=== PATIENT | female | born 1955 | race Caucasian/White ===

== ENCOUNTER 2018-02-14 08:00 | Outpatient (CLI) | payer OTHER ==
[2018-02-14 12:45] LABS: BASOPHILS # (AUTO) 0.1 10^3/uL (0.0-0.1); BASOPHILS % (AUTO) 1.1 %; EOSINOPHILS # (AUTO) 0.3 10^3/uL (0.0-0.7); EOSINOPHILS % (AUTO) 3.6 %; HGB - HEMOGLOBIN 16.6 g/dL (12.0-16.0); LYMPHOCYTES # (AUTO) 1.5 10^3/uL (1.5-3.5); LYMPHOCYTES % (AUTO) 18.8 %; MEAN CORPUSCULAR HEMOGLOBIN 32.7 pg (27.0-31.0); MEAN CORPUSCULAR HGB CONC 34.2 g/dL (32.0-36.0); MEAN CORPUSCULAR VOLUME 95.6 fL (81.0-99.0); MEAN PLATELET VOLUME 10.3 fL (7.9-10.8); MONOCYTES # (AUTO) 0.5 10^3/uL (0.0-1.0); MONOCYTES % (AUTO) 6.1 %; NEUTROPHILS # (AUTO) 5.6 10^3/uL (1.5-6.6); NEUTROPHILS % (AUTO) 70.4 %; PLT - PLATELET COUNT 204 10^3/uL (130-450); RED CELL DISTRIBUTION WIDTH 14.3 % (12.0-15.0); WHITE BLOOD COUNT 7.9 x10^3/uL (4.8-10.8)
[2018-02-14 13:17] LABS: ALBUMIN 4.5 g/dL (3.2-5.5); ALBUMIN/GLOBULIN RATIO 1.4 (1.0-2.2); ALKALINE PHOSPHATASE 56 IU/L (42-121); ALT ALANINE AMINOTRANSFERASE 13 IU/L (10-60); AST ASPARTATE AMINOTRANSFERASE 20 IU/L (10-42); BILIRUBIN,TOTAL 0.5 mg/dL (0.2-1.0); BUN - BLOOD UREA NITROGEN 16 mg/dL (6-20); CALCIUM 9.4 mg/dL (8.5-10.3); CARBON DIOXIDE - CO2 26 mmol/L (21-32); CHLORIDE 104 mmol/L (101-111); CHOL/HDL RATIO 3.2 (<4.4); CHOLESTEROL 237 mg/dL; CREATININE 0.8 mg/dL (0.4-1.0); GFR - MDRD 73 (>89); GLUCOSE 91 mg/dL (70-100); HDL CHOLESTEROL 74 mg/dL; LDL CHOLESTEROL,CALCULATED 149 mg/dL; SODIUM 138 mmol/L (135-145); TOTAL PROTEIN 7.7 g/dL (6.7-8.2); VLDL CHOLESTEROL 14 mg/dL
[2018-02-14 13:26] LABS: FOLATE 22.78 ng/mL (5.90 - >24.8); HB2 TOTAL 19.2 g/dL; HEMOGLOBIN A1C 0.74 g/dL; HEMOGLOBIN A1C % 5.7 % (4.6-6.2)
== END 2018-02-14 08:01 | disposition home or self-care (01) ==
LOC: LAB.WCP 08:00
PROVIDERS: ATTEND Physician Assistant
DX: Z00.00 Encounter for general adult medical examination without abnormal findings (principal); F10.10 Alcohol abuse, uncomplicated
CPT/HCPCS: 36415; 80053; 80061; 82607; 82746; 83036; 83721; 84425; 84443; 85025

== ENCOUNTER 2018-03-13 14:57 | Outpatient (CLI) | payer OTHER ==
--- NOTE | 2018-03-14 07:10 | MRI Report ---
EXAM: MRI BRAIN WITHOUT CONTRAST EXAM DATE: 03/13/2018 03:55 PM. CLINICAL HISTORY: Dementia associated with alcoholism. COMPARISON: 07/15/2015. TECHNIQUE: Multiplanar, multisequence T1-weighted and fluid-sensitive MR sequences of the brain were performed. Sequences optimized for routine evaluation. Other: None. IV Contrast: None. FINDINGS: Brain Volume: Mild diffuse potentially progressive cerebral volume loss. Parenchyma/Dura: No restricted diffusion to suggest acute or recent ischemic infarct. No cerebral hem orrhage, mass effect, midline shift or abnormal subdural fluid collection. No focal brain swelling or edema. Minimal white matter T2 hyperintense signal changes, possibly from aging and minimal microang iopathy. Ventricles/Cisterns: No hydrocephalus. Orbits: Symmetric and unremarkable. Sella Turc[place]: The pituitary gland, cavernous sinuses, suprasellar cistern and optic chiasm are unrem arkable. Vasculature: Normal signal flow void is seen in the major arterial structures at the skull base. Sinuses: No acute appearing sinus disease. Bones: No focal pathologic appearing marrow signal changes in the skull or clivus. Other: None. IMPRESSION: 1. Mild generalized cerebral volume loss, possibly progressive. 2. Minimal nonspecific white matter T2 hyperintense signal changes. 3. No evidence for acute infarct or hemorrhage. [facility] Referring Provider Line: [phone] SITE ID: [id number]
== END 2018-03-13 14:58 | disposition home or self-care (01) ==
LOC: DI 14:57
PROVIDERS: ATTEND Physician Assistant
DX: F10.97 Alcohol use, unspecified with alcohol-induced persisting dementia (principal)
CPT/HCPCS: 70551

== ENCOUNTER 2018-04-10 09:00 | Outpatient (CLI) | payer OTHER ==
[2018-04-10 19:49] LABS: H. PYLORIS ANTIGEN STL NEGATIVE (Negative)
== END 2018-04-10 09:01 | disposition home or self-care (01) ==
LOC: LAB.R 09:00
PROVIDERS: ATTEND Physician Assistant
DX: R19.7 Diarrhea, unspecified (principal)
CPT/HCPCS: 81599; 83630; 87045; 87046; 87177; 87209; 87329; 87338; 87493

== ENCOUNTER 2018-05-04 10:27 | Day surgery (SDC) | payer OTHER ==
[2018-05-04] MEDS ORDERED: LACTATED RINGERS 1,000 ML IV ONE ×2 (10:49→13:06)
[2018-05-04 11:41] LABS: INR 1.1 (0.8-1.2); PT - PROTHROMBIN TIME 12.3 secs (9.9-12.6)
[2018-05-04] MEDS ORDERED: LIDOCAINE-MPF 2% 5 ML VIAL IM ONE (12:33)
[2018-05-04] MEDS ORDERED: MIDAZOLAM 2 MG/2 ML VIAL IVP ONE (12:33)
[2018-05-04] MEDS ORDERED: PROPOFOL 200 MG/20 ML VIAL IVP ONE (12:33)
[2018-05-04] MEDS ORDERED: fentaNYL 100 MCG/2 ML VIAL IVP ONE (12:33)
[2018-05-04 13:49] VITALS: BP 114/62
== END 2018-05-04 10:28 | disposition home or self-care (01) ==
LOC: SDS 10:27
PROVIDERS: ATTEND Internal Medicine Gastroenterology
PROC: 0DBM8ZX Excision of Descending Colon, Via Natural or Artificial Opening Endoscopic, Diagnostic (ICD-10-PCS; 2018-05-04)
PROC: 0DBK8ZX Excision of Ascending Colon, Via Natural or Artificial Opening Endoscopic, Diagnostic (ICD-10-PCS; principal; 2018-05-04 11:30)
DX: K52.831 Collagenous colitis (principal); F17.210 Nicotine dependence, cigarettes, uncomplicated; F10.27 Alcohol dependence with alcohol-induced persisting dementia; K57.30 Diverticulosis of large intestine without perforation or abscess without bleeding; M54.5 Low back pain
CPT/HCPCS: 45380; 85610; J7120; 88305

== ENCOUNTER 2019-08-01 10:56 | Outpatient (CLI) | payer OTHER ==
--- NOTE | 2019-08-02 10:00 | Mammography Report ---
Reason: SCREENING MAMMO Procedure Date: 08/01/2019 Accession Number: [id number] / [id number] Procedure: [facility] - Screening Mammo Dig Bilat CPT Code: FULL RESULT: EXAM: Screening Mammo Dig Bilat DATE: 08/01/2019 11:40 AM CLINICAL HISTORY: Screening encounter. History of nulliparity. TECHNIQUE: (B) - Bilateral CC and MLO views were obtained. COMPARISON: 09/20/2014 through 07/16/2010. PARENCHYMAL PATTERN: (D) - The breast(s) demonstrate(s) heterogeneously dense fibroglandular parenchyma. FINDINGS: There are no suspicious masses, calcifications, or areas of distortion. IMPRESSION: Negative examination. BI-RADS category 1. RECOMMENDATION: (ANNUAL) - Recommend routine annual screening mammography. BI-RADS CATEGORY: (1) - Negative. STANDARD QUALIFYING STATEMENTS: 1. This examination was not reviewed with the aid of Computer-Aided Detection (CAD). 2. A negative or benign imaging report should not preclude biopsy if clinically suspicious findings are present. 3. Dense breasts may obscure an underlying neoplasm. 4. This examination was reviewed without the aid of 3D breast imaging (tomosynthesis).
== END 2019-08-01 10:57 | disposition home or self-care (01) ==
LOC: DI 10:56
DX: Z12.31 Encounter for screening mammogram for malignant neoplasm of breast (principal)
CPT/HCPCS: 77067

== ENCOUNTER 2021-04-09 13:58 | Inpatient (IN) | payer MEDICARE, OTHER ==
[2021-04-09] MEDS ORDERED: SODIUM CHLORIDE 0.9% 1,000 ML IV STA (14:34)
[2021-04-09] MEDS ORDERED: HYDROmorphone 1 MG/ML CARPUJECT IVP STA ×2 (14:34→16:15)
--- NOTE | 2021-04-09 14:43 | ED Physician Documentation ---
History of Present Illness - Stated complaint Stated Complaint: CHEST/ABD PX - Chief complaint Chief Complaint: Abd Pain - Additonal information Additional information: 65-year-old female presents to the emergency department for evaluation of acute onset substernal chest pain as well as lower abdominal pain. The patient does have early dementia so much of the history is provided by the . He reports that she woke up yesterday morning complaining of upper abdominal pain. She has had no fevers vomiting. She does have a history recently of irregular bowel movements sometimes constipated and sometimes watery. Patient reports that when she takes a deep breath it increases the pain in her abdomen. Past surgical history includes total abdominal hysterectomy many years ago. Patient is a daily tobacco and alcohol user. She denies any history of hypertension or diabetes and takes no prescribed medications. Review of Systems Constitutional: reports: Reviewed and negative Eyes: reports: Reviewed and negative Nose: reports: Reviewed and negative Cardiac: reports: Chest pain / pressure, Palpitations Respiratory: denies: Dyspnea, Cough GI: reports: Abdominal Pain, Constipation, Diarrhea. 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 - Present Medications Home Medications: Ambulatory Orders Medication Instructions Recorded Confirmed No Known Home Medications 05/04/18 04/09/21 - Allergies Allergies/Adverse Reactions: Allergies Allergy/AdvReac Type Severity Reaction Status Date / Time No Known Drug Allergies Allergy Verified 04/09/21 14:08 - Social History Does the pt smoke?: Yes Smoking Status: Current every day smoker Does the pt drink ETOH?: Yes ETOH Use: Beer Does the pt have substance abuse?: No PD ED PE EXPANDED - General General: Alert, No acute distress - Cardiac Cardiac: Regular Rate, Radial strong equal, Pedal strong equal, Cap refill < 2 sec. No: Murmur Present - Respiratory Respiratory: Clear to ausultation homa. No: Distress, Labored - Abdomen Abdomen: Normal Bowel sounds, Tender to palpation, Rebound, Guarding, Generalized/diffuse (Diffuse abdominal pain with guarding and rebound. Left greater than right. Generalized tympany present. No distention.) - Derm Derm: Normal color, Warm and dry - Extremities Extremities: Normal. No: Deformity, Tenderness - Neuro Neuro: Confused (oriented to person and place but confused to time.), CNII-XII intact, Normal gait, Normal finger nose, Normal speech. No: Disoriented - GCS Eye Opening: Spontaneous Motor: Obeys Commands Verbal: Confused Total: 14 Results - Vitals Vitals: Vital Signs - 24 hr 04/09/21 04/09/21 04/09/21 14:04 15:00 16:00 Temperature 36.1 C L Heart Rate 99 80 88 Respiratory 14 16 16 Rate Blood Pressure 145/79 H 156/68 H 131/75 H O2 Saturation 97 100 98 Oxygen O2 Source Room air - EKG (time done) 1407 Rate: Rate (enter#) (90) Rhythm: NSR [place]: Normal Intervals: Normal IN, Prolonged QT QRS: Normal Ischemia: Non specific changes Compare to prior EKG: Old EKG unavailable Computer interpretation: Agree with computer - Labs Labs: Laboratory Tests 04/09/21 04/09/21 04/09/21 15:40 15:40 15:40 WBC 12.6 H RBC 4.73 Hgb 15.2 Hct 45.2 MCV 95.6 MCH 32.1 H MCHC 33.6 RDW 14.3 Plt Count 225 MPV 11.7 H Neut # (Auto) 9.8 H Lymph # (Auto) 1.5 [place] # (Auto) 1.1 H Eos # (Auto) 0.1 Baso # (Auto) 0.1 Absolute Nucleated RBC 0.00 Nucleated RBC % 0.0 PT 14.8 H INR 1.4 H Sodium 133 L Potassium 3.8 Chloride 99 L Carbon Dioxide 25 Anion Gap 9.0 BUN 12 Creatinine 0.7 Estimated GFR (MDRD) 84 L Glucose 91 Lactic Acid Calcium 9.0 Total Bilirubin 1.0 AST 15 ALT 11 Alkaline Phosphatase 69 Troponin I High Sens B-Natriuretic Peptide Total Protein 7.3 Albumin 4.1 Globulin 3.2 Albumin/Globulin Ratio 1.3 Lipase 29 Urine Color Urine Clarity Urine pH Ur Specific [place] Urine Protein Urine Glucose (UA) Urine Ketones Urine Occult Blood Urine Nitrite Urine Bilirubin Urine Urobilinogen Ur Leukocyte Esterase Urine RBC Urine WBC Ur Squamous Epith Cells Amorphous Sediment Urine Bacteria Urine Mucus Ur Microscopic Review Urine Culture Comments 04/09/21 04/09/21 04/09/21 15:40 15:40 15:40 WBC RBC Hgb Hct MCV MCH MCHC RDW Plt Count MPV Neut # (Auto) Lymph # (Auto) [place] # (Auto) Eos # (Auto) Baso # (Auto) Absolute Nucleated RBC Nucleated RBC % PT INR Sodium Potassium Chloride Carbon Dioxide Anion Gap BUN Creatinine Estimated GFR (MDRD) Glucose Lactic Acid 0.8 Calcium Total Bilirubin AST ALT Alkaline Phosphatase Troponin I High Sens 3.2 B-Natriuretic Peptide 138 H Total Protein Albumin Globulin Albumin/Globulin Ratio Lipase Urine Color Urine Clarity Urine pH Ur Specific [place] Urine Protein Urine Glucose (UA) Urine Ketones Urine Occult Blood Urine Nitrite Urine Bilirubin Urine Urobilinogen Ur Leukocyte Esterase Urine RBC Urine WBC Ur Squamous Epith Cells Amorphous Sediment Urine Bacteria Urine Mucus Ur Microscopic Review Urine Culture Comments 04/09/21 17:09 WBC RBC Hgb Hct MCV MCH MCHC RDW Plt Count MPV Neut # (Auto) Lymph # (Auto) [place] # (Auto) Eos # (Auto) Baso # (Auto) Absolute Nucleated RBC Nucleated RBC % PT INR Sodium Potassium Chloride Carbon Dioxide Anion Gap BUN Creatinine Estimated GFR (MDRD) Glucose Lactic Acid Calcium Total Bilirubin AST ALT Alkaline Phosphatase Troponin I High Sens B-Natriuretic Peptide Total Protein Albumin Globulin Albumin/Globulin Ratio Lipase Urine Color DARK YELLOW Urine Clarity CLEAR Urine pH 6.0 Ur Specific [place] 1.020 Urine Protein TRACE Urine Glucose (UA) NEGATIVE Urine Ketones 40 H Urine Occult Blood SMALL H Urine Nitrite NEGATIVE Urine Bilirubin NEGATIVE Urine Urobilinogen 0.2 (NORMAL) Ur Leukocyte Esterase MODERATE H Urine RBC 6-10 H Urine WBC 6-10 H Ur Squamous Epith Cells FEW Squamous Amorphous Sediment Few Urine Bacteria Few Urine Mucus Moderate Strands Ur Microscopic Review INDICATED Urine Culture Comments INDICATED - Rads (name of study) CT abd Radiology: Final report received (Large area of devascularization involving the spleen likely related to splenic infarct. No free fluid or air. Hepatic steatosis. No dilated loops of bowel. Diverticulosis without diverticulitis.) PD MEDICAL DECISION MAKING - ED course Complexity details: reviewed results, re-evaluated patient, d/w patient ED course: 65-year-old female presents the emergency department for evaluation of what she reported was initially substernal chest pain that then radiated to her abdomen that began 2 days ago. No fevers or vomiting. She does have a history of early dementia but is taking no prescribed medications. According to her she is a daily drinker of at least a few beers as well is an active tobacco user. Screening EKG was nonischemic. High-sensitivity troponin unremarkable. She denied chest pain at the time of my evaluation and chest x-ray was without any focal abnormalities. Screening electrolytes otherwise unremarkable. We did proceed to do a CT of the abdomen and pelvis that did show likely an acute splenic infarct. I discussed this case with on-call surgeon Dr. Vu. He felt that given the acuity of the events patient would benefit from hospitalization to the medicine service for pain control. He would like to consider anticoagulation of the splenic infarct and requested I obtain a CT of the head. He also requested that the day hospitalist call him to discuss the case. I did discuss the case with on-call hospitalist Dr. Wilhelm to who spoke with Dr. Vu and admission orders have been written for further evaluation and treatment of the splenic infarct. Pt will likely undergo a CT angio of abdomen in the Am. Of note, her PT/INR not markedly elevated Departure - Departure Disposition: 66 [facility] DC/Xfer Clinical Impression: Infarction of spleen
[2021-04-09] MEDS ORDERED: IOVERSOL 320 100 ML VIAL IVP ONE (15:02)
--- NOTE | 2021-04-09 15:03 | XRAY Report ---
PROCEDURE: Chest 1 View X-Ray INDICATIONS: Chest Pain TECHNIQUE: One view of the chest was acquired. COMPARISON: None. FINDINGS: Surgical changes and devices: None. Lungs and pleura: No pleural effusions or pneumothorax. Lungs are clear. Mediastinum: Mediastinal contours appear normal. Heart size is normal. Bones and chest wall: No suspicious bony lesions. Scoliosis. Overlying soft tissues appear unremark able. IMPRESSION: No acute cardiopulmonary abnormality. Reviewed by: Win Cooper MD on 04/09/2021 3:02 PM PDT Approved by: Win Cooper MD on 04/09/2021 3:02 PM PDT Station ID: [id number]
[2021-04-09 15:46] LABS: BASOPHILS # (AUTO) 0.1 10^3/uL (0.0-0.1); BASOPHILS % (AUTO) 0.7 %; EOSINOPHILS # (AUTO) 0.1 10^3/uL (0.0-0.7); EOSINOPHILS % (AUTO) 0.7 %; HCT - HEMATOCRIT 45.2 % (37.0-47.0); HGB - HEMOGLOBIN 15.2 g/dL (12.0-16.0); LYMPHOCYTES # (AUTO) 1.5 10^3/uL (1.5-3.5); LYMPHOCYTES % (AUTO) 11.6 %; MEAN CORPUSCULAR HEMOGLOBIN 32.1 pg (27.0-31.0); MEAN CORPUSCULAR HGB CONC 33.6 g/dL (32.0-36.0); MEAN CORPUSCULAR VOLUME 95.6 fL (81.0-99.0); MEAN PLATELET VOLUME 11.7 fL (7.9-10.8); MONOCYTES # (AUTO) 1.1 10^3/uL (0.0-1.0); MONOCYTES % (AUTO) 8.7 %; NEUTROPHILS # (AUTO) 9.8 10^3/uL (1.5-6.6); NEUTROPHILS % (AUTO) 78.1 %; PLT - PLATELET COUNT 225 10^3/uL (130-450); RED BLOOD COUNT 4.73 10^6/uL (4.20-5.40); RED CELL DISTRIBUTION WIDTH 14.3 % (12.0-15.0); WHITE BLOOD COUNT 12.6 x10^3/uL (4.8-10.8)
[2021-04-09 15:51] LABS: INR 1.4 (0.8-1.2); PT - PROTHROMBIN TIME 14.8 secs (9.9-12.6)
[2021-04-09 15:59] LABS: ALBUMIN 4.1 g/dL (3.2-5.5); ALBUMIN/GLOBULIN RATIO 1.3 (1.0-2.2); CREATININE 0.7 mg/dL (0.4-1.0); POTASSIUM 3.8 mmol/L (3.5-5.0); TOTAL PROTEIN 7.3 g/dL (6.7-8.2)
[2021-04-09] MEDS: IOVERSOL 320 100 ML VIAL IVP ONE (16:46)
--- NOTE | 2021-04-09 17:04 | CT Report ---
PROCEDURE: Abdomen/Pelvis W INDICATIONS: generalized abd pain CONTRAST: IV CONTRAST: Optiray 320 ml: 100 PO CONTRAST: *NO PO CONTRAST TECHNIQUE: After the administration of contrast, 5 mm thick sections acquired from the diaphragms to the sym physis. 5 mm thick coronal and sagittal reformats were acquired. For radiation dose reduction, the following was used: automated exposure control, adjustment of mA and/or kV according to patient size . COMPARISON: None. FINDINGS: Image quality: Excellent. ABDOMEN: Lung bases: Lung bases are clear. Heart size is normal. Solid organs: Liver is normal in size and enhancement. Mild, diffuse fatty infiltration of the live r. Large area of hypodensity enhancement/hypoattenuation noted in the spleen suspicious for splenic i nfarct. Gallbladder is normal. Biliary system is non dilated. Pancreas enhances normally. No adren al nodules. Kidneys demonstrate normal size and enhancement, without hydronephrosis. Peritoneum and bowel: Bowel loops demonstrate normal wall thickness and caliber. A few scattered col onic diverticuli without evidence of diverticulitis. No free fluid or air. The appendix is normal in size and contour. 2 mm phlebolith noted near the tip of the appendix. Nodes and vessels: No retroperitoneal or mesenteric adenopathy by size criteria. Aorta and inferior vena cava are normal in size. Scattered atherosclerotic calcifications are noted in the abdominal an d pelvic vasculature. Miscellaneous: No ventral hernias. PELVIS: Genitourinary: Bladder wall thickness is normal. Uterus is absent or atrophied. Incidental note made of prominence of the left gonadal vein of uncertain etiology.. Miscellaneous: No inguinal hernias or adenopathy. Bones: No suspicious bony lesions. No vertebral body compression fractures. Spine degenerative disc disease and facet arthropathy are noted. Convex left thoracolumbar spine scoliosis. IMPRESSION: 1. Large area of the de-vascularization involving the spleen likely related to splenic infarct. 2. No free fluid or free air. 4. Hepatic steatosis. 5. No dilated loops of bowel. 6. Colonic diverticulosis without evidence of diverticulitis. Findings discussed with Abi Ceballos NP on 04/09/2021 at 1701 hours. Reviewed by: Diane Pitt MD, PhD on 04/09/2021 5:02 PM PDT Approved by: Diane Pitt MD, PhD on 04/09/2021 5:02 PM PDT Station ID: [id number]
[2021-04-09 17:16] LABS: CLARITY,URINE CLEAR (CLEAR); GLUCOSE, URINE (UA) NEGATIVE (NEGATIVE); KETONES,URINE (UA) 40 mg/dL (NEGATIVE); LEUKOCYTE ESTERASE, URINE MODERATE (NEGATIVE); NITRITE,URINE NEGATIVE (NEGATIVE); OCCULT BLOOD,URINE SMALL (NEGATIVE); PROTEIN,URINE TRACE mg/dL (NEGATIVE); UROBILINOGEN,URINE 0.2 (NORMAL) E.U./dL (NORMAL)
[2021-04-09 17:21] LABS: BILIRUBIN,URINE NEGATIVE (NEGATIVE); ICTOTEST,URINE NEGATIVE
[2021-04-09 17:22] LABS: AMORPHOUS SEDIMENT,UR Few /LPF; BACTERIA,URINE Few /HPF (None Seen); MUCUS,URINE Moderate Strands; SQUAMOUS EPITHELIAL CELL,UR FEW Squamous (<= Few)
[2021-04-09] MEDS ORDERED: SODIUM CHLORIDE FLUSH 0.9% 10 ML SYRINGE IVP PRN (17:50)
[2021-04-09] MEDS ORDERED: ONDANSETRON 4 MG/2 ML VIAL IVP PRN (17:50)
--- NOTE | 2021-04-09 17:56 | HISTORY & PHYSICAL EXAMINATION ---
Chief Complaint - Chief Complaint Chief Complaint: abdominal pain History of Present Illness - Admitted From Admitted From:: [facility] ED - History Obtained From Records Reviewed: yes History obtained from: patient and spouse Exam Limitations: mild early dementia - History of Present Illness HPI Comment/Other: Patient is a 65-year-old female who presented to the ED with complaint of sharp constant abdominal pain. It started last night in the epigastric region but then progressed to her entire abdomen. Initially it was 8 out of 10 but progressed to 10 out of 10 pain. She finally came to the ED because the pain persisted and when she called her primary care clinic she was advised to go to the emergency room. She also reported feeling bloated. She denied nausea or vomiting. She also denied chest pain, dyspnea, fever or chills. In the ED work-up included a CT of the abdomen/pelvis which showed a splenic infarct. She is being admitted for further treatment to include anticoagulation. At bedside she is resting comfortably. She denies any pain but had just been given 2 doses of pain medication. 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 Social History Notes: The patient lives at home with her spouse. She drinks about 216 ounce cans of beer daily. She smokes about 1 pack/day of cigarettes and has been smoking for 45 years. She does not use any recreational substances. - POLST Patient has POLST: No POLST Status: Full Code Meds/Allgy - Home Medications Home Medications: Ambulatory Orders Medication Instructions Recorded Confirmed No Known Home Medications 05/04/18 04/09/21 - Allergies Allergies/Adverse Reactions: Allergies Allergy/AdvReac Type Severity Reaction Status Date / Time No Known Drug Allergies Allergy Verified 04/09/21 14:08 Review of Systems - Constitutional Constitutional: reports: Poor appetite. denies: Fatigue, Fever, Chills - Eyes Eyes: denies: Pain, Vision loss, Dipolpia - Ears, Nose & Throat Ears, Nose & Throat: denies: Ear pain, Sore throat, Hoarseness - Respiratory Respiratory: denies: Wheezing, SOB at rest, SOB with exertion - Gastrointestinal Gastrointestinal: reports: Abdominal pain, Bloating. denies: Diarrhea, Black stools, Bloody stools, Nausea, Vomiting, Reflux/heartburn - Genitourinary Genitourinary: denies: Dysuria, Frequency, Urgency, Hematuria - Musculoskeletal Musculoskeletal: denies: Muscle pain, Back pain, Muscle aches, Stiffness - Integumentary Integumentary: denies: Rash, Pruritis, Lesions, Dryness - Neurological Neurological: denies: General weakness, Focal weakness, Headache, Dizziness - Psychiatric Psychiatric: denies: Depression, Anxiety - Endocrine Endocrine: denies: Polyuria, Polydypsia - Hematologic/Lymphatic Hematologic/Lymphatic: denies: Anemia, Bruising, Petechiae Prior Level of Functionality: She is independent of activities of daily living. Exam - Vital Signs Vital Signs: Vital Signs x48h Temp Pulse Resp BP Pulse Ox 04/09/21 16:00 88 16 131/75 H 98 04/09/21 15:00 80 16 156/68 H 100 04/09/21 14:04 36.1 C L 99 14 145/79 H 97 - Physical Exam General Appearance: positive: Alert, Mild distress Eyes Bilateral: positive: PERRL, EOMI ENT: positive: No signs of dehydration Neck: positive: No JVD, Trachea midline Respiratory: positive: Chest non-tender, No respiratory distress, Other (mild crackles on right lung base) Cardiovascular: positive: Regular rate & rhythm, No murmur Abdomen: positive: Tenderness (mild tenderness to palpation), Other (decreased bowel sounds). negative: Guarding, Rebound Back: negative: Nml inspection Skin: positive: Color nml, No rash, Warm, Dry Extremities: positive: Non-tender, Full ROM, Nml appearance, No pedal edema Neurologic/Psychiatric: positive: Oriented x3, Mood/affect nml Conclusion/Plan - Problem List (1) Infarction of spleen Conclusion/Plan: CT of the abdomen/pelvis indicated splenic infarct. Heparin drip ordered. N.p.o. except for meds, sips and ice chips IV hydration with D5 plus normal saline at 100 mL/h. Pain management with oxycodone and oral Dilaudid as needed. Dr. Vu with general surgery was consulted and will see patient in consult. Plan would be to do a CT angio abdomen/pelvis tomorrow. Patient would subsequently need further work-up for possible cause of splenic infarct. Differential would include Global states like antiphospholipid syndrome, malignancy Patient denied any recent trauma/injury. (2) Alcohol use Conclusion/Plan: She reports drinking 2 16 ounce cans of beer daily. CIWA protocol initiated. Librium 25 mg p.o. twice daily ordered. Thiamine and multivitamins ordered. - Lab Results Fish Bones: 04/09/21 15:40 04/09/21 15:40 Core Measures - Anticipated LOS I expect patient to be DC'd or transferred within 96 hours.: Yes - DVT/VTE - Prophylaxis VTE/DVT Device ordered at admit?: Yes VTE/DVT Prophylaxis med ordered at admit?: Yes
[2021-04-09] MEDS ORDERED: DEXTROSE 5%-0.9% NACL 1,000 ML IV SCH (18:00)
--- NOTE | 2021-04-09 18:12 | CT Report ---
PROCEDURE: HEAD WO INDICATIONS: r/o bleed in setting of possible anticoagulation TECHNIQUE: Noncontrast 4.5 mm thick angled axial sections acquired from the foramen magnum to the vertex. For r adiation dose reduction, the following was used: automated exposure control, adjustment of mA and/or kV according to patient size. COMPARISON: None. FINDINGS: Image quality: Excellent. Examination limited by the presence of intravenous contrast. CSF spaces: Basal cisterns are patent. No extra-axial fluid collections. Ventricles are normal in size and shape. Brain: No midline shift. No definite intracranial masses or hemorrhage. Jones-white matter interfac e is normal. Skull and face: Calvarium and visualized facial bones are intact, without suspicious lesions. Sinuses: Visualized sinuses and mastoids are clear. IMPRESSION: 1. Limited examination for small amounts of intracranial hemorrhage secondary to intravenous contrast . No definite acute intracranial abnormality. Reviewed by: Marline Vidal MD on 04/09/2021 6:10 PM PDT Approved by: Marline Vidal MD on 04/09/2021 6:10 PM PDT Station ID: [id number]
[2021-04-09 18:23] LABS: HGB - HEMOGLOBIN 14.6 g/dL (12.0-16.0); MEAN CORPUSCULAR HGB CONC 33.2 g/dL (32.0-36.0); MEAN CORPUSCULAR VOLUME 96.5 fL (81.0-99.0); RED BLOOD COUNT 4.56 10^6/uL (4.20-5.40); RED CELL DISTRIBUTION WIDTH 14.5 % (12.0-15.0); WHITE BLOOD COUNT 12.4 x10^3/uL (4.8-10.8)
[2021-04-09] MEDS: DEXTROSE 5%-0.9% NACL 1,000 ML IV SCH (19:18)
[2021-04-09] MEDS: HEPARIN 25000UNITS/500ML (D5W) 25,000 UNIT/500 ML BAG IV SCH (19:27)
[2021-04-09 19:40] LABS: B. PARAPERTUSSIS- RESP PCR PAN NOT DETECTED; B. PERTUSSIS- RESP PCR PANEL NOT DETECTED; C. PNEUMONIAE- RESP PCR PANEL NOT DETECTED; CORONAVIRUS 229E-RESP PCR NOT DETECTED; CORONAVIRUS HKU1-RESP PCR NOT DETECTED; CORONAVIRUS NL63-RESP PCR NOT DETECTED; CORONAVIRUS OC43-RESP PCR NOT DETECTED; HUMAN METAPNEUMOVIRUS NOT DETECTED; INFLUENZA A- RESP PCR PANEL NOT DETECTED; INFLUENZA B - RESP PCR PANEL NOT DETECTED; M. PNEUMONIAE- RESP PCR PANEL NOT DETECTED; PARAINFLUENZA VIRUS 1 NOT DETECTED; PARAINFLUENZA VIRUS 2 NOT DETECTED; PARAINFLUENZA VIRUS 3 NOT DETECTED; PARAINFLUENZA VIRUS 4 NOT DETECTED; RHINOVIRUS/ENTEROVIRUS NOT DETECTED; RSV- RESP PCR PANEL NOT DETECTED; SARS-CoV-2 -RESP PCR PANEL NOT DETECTED
[2021-04-09] MEDS: chlordiazePOXIDE 25 MG CAPSULE PO SCH (21:46)
[2021-04-10] MEDS: SODIUM CHLORIDE FLUSH 0.9% 10 ML SYRINGE IVP SCH ×3 (00:30→16:11)
[2021-04-10] MEDS: DEXTROSE 5%-0.9% NACL 1,000 ML IV SCH ×2 (04:30→13:58)
[2021-04-10] MEDS: oxyCODONE 5 MG TABLET PO PRN ×3 (04:51→22:27)
[2021-04-10 05:21] LABS: BASOPHILS # (AUTO) 0.1 10^3/uL (0.0-0.1); BASOPHILS % (AUTO) 0.6 %; EOSINOPHILS # (AUTO) 0.2 10^3/uL (0.0-0.7); EOSINOPHILS % (AUTO) 1.9 %; HCT - HEMATOCRIT 40.6 % (37.0-47.0); HGB - HEMOGLOBIN 13.4 g/dL (12.0-16.0); LYMPHOCYTES # (AUTO) 2.2 10^3/uL (1.5-3.5); LYMPHOCYTES % (AUTO) 22.7 %; MEAN CORPUSCULAR HEMOGLOBIN 32.1 pg (27.0-31.0); MEAN CORPUSCULAR VOLUME 97.1 fL (81.0-99.0); MEAN PLATELET VOLUME 11.6 fL (7.9-10.8); MONOCYTES # (AUTO) 0.9 10^3/uL (0.0-1.0); MONOCYTES % (AUTO) 9.4 %; NEUTROPHILS # (AUTO) 6.2 10^3/uL (1.5-6.6); PLT - PLATELET COUNT 190 10^3/uL (130-450); RED BLOOD COUNT 4.18 10^6/uL (4.20-5.40); RED CELL DISTRIBUTION WIDTH 14.6 % (12.0-15.0); WHITE BLOOD COUNT 9.6 x10^3/uL (4.8-10.8)
[2021-04-10 05:24] LABS: CALCIUM 8.5 mg/dL (8.5-10.3); CREATININE 0.6 mg/dL (0.4-1.0); POTASSIUM 3.1 mmol/L (3.5-5.0)
--- NOTE | 2021-04-10 07:46 | SURGERY HX AND PHYSICAL(T) ---
Surgical History & Physical - Chief Complaint/HPI History of Present Illness: 65-year-old female presenting for acute onset abdominal pain. Sudden onset, no recent or similar episodes. No febrile episodes. No nausea no vomiting. Patient notable for history of early onset dementia. Per who is at the patient's bedside, patient has been otherwise remarkably healthy for the better part of her life. No significant family history. Notable past surgical history to include none. Patient denies change in bowel function, denies bleeding per rectum, and also denies reflux associated symptoms. Patient does not use tobacco. Patient has a history of alcohol use but denies any associated abuse. Excercise tolerance. No history of heart attack or stroke. Patient takes no systemic anticoagulation. ER physician called with report of splenic infarction. I recommended hospital admission and commencement of anticoagulation with plan CT of the head to rule out intracranial hemorrhage or process including malignancy given mental status changes and repeat CT angiogram the day following to rule out atherosclerotic disease. CT abdomen pelvis April 09, 2021 impression: 1. Large area of devascularization involving the spleen likely related to splenic infarct. 2. No free fluid or free air 3. Hepatic steatosis 4. No dilated loops of bowel 5. Colonic diverticulosis without evidence of diverticulitis. CT head impression: 1. Limited examination for small amounts of intracranial hemorrhage secondary to intravenous contrast. No definite acute intracranial anomaly - PMH/PSH/Social Hx Does the pt have a hx of MRSA?: No Neurological History: Dementia Cardiovascular: None Respiratory: None Skin: None Endocrine/Autoimmune: None Gastrointestinal: None Urinary: None Musculoskeletal: None Psychiatric: None Eyes Ears Nose Throat (EENT): Tonsil/Adenoidectomy Smoking Status: Current every day smoker Does the pt drink ETOH?: Yes Does the pt have substance abuse?: No - Home Meds and Allergies Home Medications: No Known Home Medications 05/04/18 Allergies/Adverse Reactions: Allergies Allergy/AdvReac Type Severity Reaction Status Date / Time No Known Drug Allergies Allergy Verified 04/09/21 14:08 - Review of Systems Constitutional: Malaise Gastrointestinal: Abdominal pain. No: Nausea, Vomiting - Vital Signs Heart Rate: 84 Blood Pressure: 117/61 Temperature: 36.9 C Respiratory Rate: 16 O2 Saturation: 95 Weight (kg): 53 kg Height: 1.63 m - Physical Exam Comments/Other: General Appearance: positive: No acute distress Eyes Bilateral: positive: Normal inspection ENT: positive: ENT inspection nml Neck: positive: Nml inspection Respiratory: positive: Chest non-tender, No respiratory distress, Breath sounds nml. negative: Wheezes, Rales, Rhonchi Cardiovascular: positive: Regular rate & rhythm Abdomen: positive: No distention, Other. negative: Guarding, Rebound. Positive Left abdominal pain to palpation. Extremities: positive: Non-tender, Full ROM, Nml appearance Neurologic/Psychiatric: positive: Oriented x3, CN's nml (2-12) - Patient Review Patient Review: Problems were reviewed with the patient during this visit. Medications were reviewed with the patient during this visit. Allergies were reviewed this patient during this visit. Pertinent Tests Reviewed: All pertitent test for this patient were reviewed. - Assessment & Plan Assessment and Plan: 65-year-old female presenting with history of early dementia who has acute onset splenic infarction, large area. Patient with no known hypercoagulable state, coronary artery disease or other associated risk factors. Patient denies any recent trauma. Abdominal pain is localized. Recommendation is full anticoagulation. Patient should have repeat imaging as listed below. Patient should undergo echocardiography to rule out embolic source. Patient should be referred to hematology for hypercoagulable work-up. Concern for thrombotic propagation should inspired the patient to return to the emergency room after discharge expeditiously. However this should be aborted through systemic anticoagulation. Patient has no evidence of acute intracranial process which would be contraindication. Serial abdominal exams. May have felt patient follow-up with surgical clinic April 10, 2021 CT angiogram abdomen impression: 1. Isolated finding of splenic infarction which is not increased from the initial diagnostic finding on contrast enhanced abdominal pelvic CT scanning. Echocardiography is likely warranted to assess for potential central etiology of potential embolic event.
[2021-04-10] MEDS ORDERED: POTASSIUM CHLORIDE 20 MEQ TABLET PO ONE (07:59)
--- NOTE | 2021-04-10 08:01 | PROVIDER PROGRESS NOTE ---
Assessment/Plan - Problem List (1) Infarction of spleen Assessment/Plan: CT angio of the abdomen pelvis confirmed splenic infarct with no further progression or other significant findings. 2D echocardiogram is pending for work-up of possible origin. Patient is on heparin drip. Continue pain management with oxycodone and/or Dilaudid. Awaiting input from general surgery. Further hypercoagulable work up to follow. (2) Alcohol use Assessment/Plan: She reports drinking 2 16 ounce cans of beer daily. CIWA protocol initiated. Librium 25 mg p.o. twice daily ordered. Thiamine and multivitamins ordered. - Current Meds Current Meds: Current Medications Generic Name Dose Route Start Last Admin Trade Name Freq PRN Reason Stop Dose Admin Chlordiazepoxide HCl 25 mg 04/09/21 21:00 04/09/21 21:46 Chlordiazepoxide 25 Mg Capsule PO 25 mg BID SHAWN Administration Heparin Sodium/Dextrose 25,000 unit in 500 mls @ 15.9 mls/hr 04/09/21 18:00 04/09/21 19:27 Heparin Sodium/Dextrose IV 15 unit/kg/hr .[id number] SHAWN 15.9 mls/hr Administration Protocol 15 UNIT/KG/HR Dextrose/Sodium Chloride 1,000 mls @ 100 mls/hr 04/09/21 18:28 04/10/21 04:30 D5ns IV 100 mls/hr .Q10H SHAWN Administration Oxycodone HCl 10 mg 04/09/21 17:50 04/10/21 04:51 Oxycodone 5 Mg Tablet PO 10 mg Q4HR PRN Administration Pain 8 to 10 Sodium Chloride 10 ml 04/10/21 01:00 04/10/21 00:30 Sodium Chloride Flush 0.9% 10 Ml Syringe IVP Not Given 0100,0900,1700 SHAWN - Lab Result Fish Bone Diagrams: 04/10/21 04:58 04/10/21 04:58 - Additional Planning My Orders: My Active Orders 04/09/21 17:50 Activity Orders [RC] Q2HR IO [RC] IOSHIFT Initiate Bowel Care Protocol [RC] .protocol Initiate Line Care Protocol [RC] QSHIFT Initiate Personal Care Protoco [RC] .protocol Oxygen Therapy [RC] .PRN Telemetry- [RC] Q4HR Vital Signs [RC] 0800,1600,0000 HYDROmorphone 0.5MG SYRINGE [Dilaudid 0.5MG Syringe] 0.5 mg IVP Q2H PRN Ondansetron Inj [Zofran Inj] 4 mg IVP Q6HR PRN Sodium Chloride Flush 0.9% [Normal Saline Flush 0.9%] 10 ml IVP PRN PRN oxyCODONE [Roxicodone] 10 mg PO Q4HR PRN Code Status [OTHERS] Routine Condition of Patient [OTHERS] Routine DVT Prophylaxis [OTHERS] Routine 04/09/21 17:52 NPO except Meds [DIET] 04/09/21 17:53 SCDs [RC] QSHIFT 04/09/21 17:55 Initiate VTE Heparin Protocol [RC] .protocol Notify Provider - Specific Ins [RC] PRN OCCULT BLOOD IN PAT. SINGLE [RAPID] Routine 04/09/21 18:00 Heparin [id number]/500Ml (D5w) [Heparin Sodium/Dextrose] 25,000 unit in 500 ml IV 15 unit/kg/hr 04/09/21 18:16 CIWA - AR Score Card [RC] Q4HR LORazepam INJ [Ativan Inj (Vial)] 1 mg IVP Q30M PRN 04/09/21 18:28 Dextrose 5%-0.9% NaCl [D5ns] 1,000 ml IV 100 mls/hr 04/09/21 19:23 Heparin [Heparin Sodium] 1,350 unit IVP Q6H PRN 04/09/21 21:00 chlordiazePOXIDE [Librium] 25 mg PO BID 04/10/21 01:00 Sodium Chloride Flush 0.9% [Normal Saline Flush 0.9%] 10 ml IVP 0100,0900,1700 04/10/21 07:35 Anti Xa [FACTOR XA] [COAG] Timed 04/10/21 07:58 MAGNESIUM [CHEM] Timed 04/10/21 07:59 Potassium Chloride [K-Dur] 40 meq PO ONCE ONE 04/10/21 09:00 Vitamin [Trinatal Rx 1] 1 tab PO DAILY Thiamine [Vitamin B-1] 100 mg PO DAILY 04/11/21 05:00 BMP - BASIC METABOLIC PANEL [CHEM] DAILYLAB CBC - COMP BLD CT W/AUTO DIFF [HEME] DAILYLAB 04/12/21 05:00 BMP - BASIC METABOLIC PANEL [CHEM] DAILYLAB CBC - COMP BLD CT W/AUTO DIFF [HEME] DAILYLAB 04/13/21 05:00 BMP - BASIC METABOLIC PANEL [CHEM] DAILYLAB CBC - COMP BLD CT W/AUTO DIFF [HEME] DAILYLAB 04/14/21 05:00 BMP - BASIC METABOLIC PANEL [CHEM] DAILYLAB CBC - COMP BLD CT W/AUTO DIFF [HEME] DAILYLAB Subjective - Subjective Patient Reports: Other (He was resting comfortably in bed however with movement left upper quadrant abdominal pain seem to worsen. It is also worse with deep inspiration. She rated the pain 6 out of 10 scale. She denied any other complaints. She is eager to go home.) Objective Vital Signs: Vital Signs - 24 hr 04/09/21 04/09/21 04/09/21 14:04 15:00 16:00 Temperature 36.1 C L Heart Rate 99 80 88 Heart Rate [ Brachial] Respiratory 14 16 16 Rate Blood Pressure 145/79 H 156/68 H 131/75 H Blood Pressure [Left Brachial artery] Blood Pressure [Right Brachial artery] O2 Saturation 97 100 98 04/09/21 04/09/21 04/09/21 17:00 18:00 19:23 Temperature 36.5 C Heart Rate 104 H 84 Heart Rate [ 86 Brachial] Respiratory 18 18 18 Rate Blood Pressure 121/78 117/61 Blood Pressure [Left Brachial artery] Blood Pressure 143/75 H [Right Brachial artery] O2 Saturation 97 94 94 04/09/21 04/10/21 04/10/21 22:26 00:00 04:23 Temperature 36.2 C L 36.3 C L 36.9 C Heart Rate Heart Rate [ 90 77 85 Brachial] Respiratory 18 16 16 Rate Blood Pressure Blood Pressure 124/62 135/64 H [Left Brachial artery] Blood Pressure 152/66 H [Right Brachial artery] O2 Saturation 96 95 95 04/10/21 07:46 Temperature 36.9 C Heart Rate 84 Heart Rate [ Brachial] Respiratory 16 Rate Blood Pressure 117/61 Blood Pressure [Left Brachial artery] Blood Pressure [Right Brachial artery] O2 Saturation 95 Oxygen O2 Source Room air I&O (Last 24 Hrs): Intake and Output Totals x24h 04/08/21 04/09/21 04/10/21 23:59 23:59 23:59 Intake Total 1060 920 Output Total 300 Balance 1060 620 General: Alert, Oriented x3, Moderate distress HEENT: PERRLA, EOMI Neck: Supple, No JVD Neuro: Alert, Non Focal, Oriented Times 3 Cardiovascular: Regular rate, No murmurs Respiratory: Chest non-tender, No respiratory distress, Breath sounds nml Abdomen: Normal bowel sounds, Soft, Other (Tender left upper quadrant) Extremities: No clubbing, No cyanosis, No edema Skin: No rashes, No breakdown - Results Results: Laboratory Results WBC 9.6 x10^3/uL (4.8-10.8) 04/10/21 04:58 RBC 4.18 10^6/uL (4.20-5.40) L 04/10/21 04:58 Hgb 13.4 g/dL (12.0-16.0) 04/10/21 04:58 Hct 40.6 % (37.0-47.0) 04/10/21 04:58 MCV 97.1 fL (81.0-99.0) 04/10/21 04:58 MCH 32.1 pg (27.0-31.0) H 04/10/21 04:58 MCHC 33.0 g/dL (32.0-36.0) 04/10/21 04:58 RDW 14.6 % (12.0-15.0) 04/10/21 04:58 Plt Count 190 10^3/uL (130-450) 04/10/21 04:58 MPV 11.6 fL (7.9-10.8) H 04/10/21 04:58 Neut # (Auto) 6.2 10^3/uL (1.5-6.6) 04/10/21 04:58 Lymph # (Auto) 2.2 10^3/uL (1.5-3.5) 04/10/21 04:58 [place] # (Auto) 0.9 10^3/uL (0.0-1.0) 04/10/21 04:58 Eos # (Auto) 0.2 10^3/uL (0.0-0.7) 04/10/21 04:58 Baso # (Auto) 0.1 10^3/uL (0.0-0.1) 04/10/21 04:58 Absolute Nucleated RBC 0.00 x10^3/uL 04/10/21 04:58 Nucleated RBC % 0.0 /100WBC 04/10/21 04:58 PT 14.8 secs (9.9-12.6) H 04/09/21 15:40 INR 1.4 (0.8-1.2) H 04/09/21 15:40 Anti-Xa Level 0.4 U/mL (-0.7) 04/10/21 01:28 Sodium 138 mmol/L (135-145) 04/10/21 04:58 Potassium 3.1 mmol/L (3.5-5.0) L 04/10/21 04:58 Chloride 103 mmol/L (101-111) 04/10/21 04:58 Carbon Dioxide 25 mmol/L (21-32) 04/10/21 04:58 Anion Gap 10.0 (6-13) 04/10/21 04:58 BUN 9 mg/dL (6-20) 04/10/21 04:58 Creatinine 0.6 mg/dL (0.4-1.0) 04/10/21 04:58 Estimated GFR (MDRD) 100 (>89) 04/10/21 04:58 Glucose 129 mg/dL (70-100) H 04/10/21 04:58 Lactic Acid 0.8 mmol/L (0.5-2.2) 04/09/21 15:40 Calcium 8.5 mg/dL (8.5-10.3) 04/10/21 04:58 Total Bilirubin 1.0 mg/dL (0.2-1.0) 04/09/21 15:40 AST 15 IU/L (10-42) 04/09/21 15:40 ALT 11 IU/L (10-60) 04/09/21 15:40 Alkaline Phosphatase 69 IU/L (42-121) 04/09/21 15:40 Troponin I High Sens 3.2 ng/L (2.3-14.8) 04/09/21 15:40 B-Natriuretic Peptide 138 pg/mL (5-100) H 04/09/21 15:40 Total Protein 7.3 g/dL (6.7-8.2) 04/09/21 15:40 Albumin 4.1 g/dL (3.2-5.5) 04/09/21 15:40 Globulin 3.2 g/dL (2.1-4.2) 04/09/21 15:40 Albumin/Globulin Ratio 1.3 (1.0-2.2) 04/09/21 15:40 Lipase 29 U/L (22-51) 04/09/21 15:40 Urine Color DARK YELLOW 04/09/21 17:09 Urine Clarity CLEAR (CLEAR) 04/09/21 17:09 Urine pH 6.0 PH (5.0-7.5) 04/09/21 17:09 Ur Specific [place] 1.020 (1.002-1.030) 04/09/21 17:09 Urine Protein TRACE mg/dL (NEGATIVE) 04/09/21 17:09 Urine Glucose (UA) NEGATIVE mg/dL (NEGATIVE) 04/09/21 17:09 Urine Ketones 40 mg/dL (NEGATIVE) H 04/09/21 17:09 Urine Occult Blood SMALL (NEGATIVE) H 04/09/21 17:09 Urine Nitrite NEGATIVE (NEGATIVE) 04/09/21 17:09 Urine Bilirubin NEGATIVE (NEGATIVE) 04/09/21 17:09 Urine Urobilinogen 0.2 (NORMAL) E.U./dL (NORMAL) 04/09/21 17:09 Ur Leukocyte Esterase MODERATE (NEGATIVE) H 04/09/21 17:09 Urine RBC 6-10 /HPF (0-5) H 04/09/21 17:09 Urine WBC 6-10 /HPF (0-5) H 04/09/21 17:09 Ur Squamous Epith Cells FEW Squamous (<= Few) 04/09/21 17:09 Amorphous Sediment Few /LPF 04/09/21 17:09 Urine Bacteria Few /HPF (None Seen) 04/09/21 17:09 Urine Mucus Moderate Strands 04/09/21 17:09 Ur Microscopic Review INDICATED 04/09/21 17:09 Urine Culture Comments INDICATED 04/09/21 17:09 Nasal Adenovirus (PCR) NOT DETECTED 04/09/21 18:37 Nasal B. parapertussis DNA (PCR) NOT DETECTED 04/09/21 18:37 Nasal Coronavir 229E PCR NOT DETECTED 04/09/21 18:37 Nasal Coronavir HKU1 PCR NOT DETECTED 04/09/21 18:37 Nasal Coronavir NL63 PCR NOT DETECTED 04/09/21 18:37 Nasal Coronavir OC43 PCR NOT DETECTED 04/09/21 18:37 Nasal Enterovir/Rhinovir PCR NOT DETECTED 04/09/21 18:37 Nasal Influenza B PCR NOT DETECTED 04/09/21 18:37 Nasal Influenza A PCR NOT DETECTED 04/09/21 18:37 Nasal Parainfluen 1 PCR NOT DETECTED 04/09/21 18:37 Nasal Parainfluen 2 PCR NOT DETECTED 04/09/21 18:37 Nasal Parainfluen 3 PCR NOT DETECTED 04/09/21 18:37 Nasal Parainfluen 4 PCR NOT DETECTED 04/09/21 18:37 Nasal RSV (PCR) NOT DETECTED 04/09/21 18:37 Nasal B.pertussis DNA PCR NOT DETECTED 04/09/21 18:37 Nasal C.pneumoniae (PCR) NOT DETECTED 04/09/21 18:37 [place] Human Metapneumo PCR NOT DETECTED 04/09/21 18:37 Nasal M.pneumoniae (PCR) NOT DETECTED 04/09/21 18:37 Nasal SARS-CoV-2 (PCR) NOT DETECTED 04/09/21 18:37 - Procedures Procedures: Procedures EXCISION OF ASCENDING COLON, ENDO, DIAGN (05/04/18) EXCISION OF DESCENDING COLON, ENDO, DIAGN (05/04/18) ABX Reporting Has patient been on IV antibiotics over the past 48 hours?: No
[2021-04-10] MEDS: THIAMINE 100 MG TABLET PO SCH (08:24)
[2021-04-10] MEDS: chlordiazePOXIDE 25 MG CAPSULE PO SCH ×2 (08:25→20:25)
[2021-04-10] MEDS: PRENATAL VITAMIN TABLET PO SCH (08:25)
[2021-04-10] MEDS ORDERED: IOVERSOL 320 100 ML VIAL IVP ONE (08:30)
[2021-04-10] MEDS: IOVERSOL 320 100 ML VIAL IVP ONE (09:40)
--- NOTE | 2021-04-10 09:50 | PHARMACY PROGRESS NOTE ---
- Best Possible Medication History Admit Date and Time: 04/09/21 1750 Processed by: Nursing Medication History completed: Yes (MED REC COMPLETED BY NURSING) As the person ultimately responsible for medication therapy, providers are able to order a medication from an existing home medication list in [facility] via the "Reconcile Routine" prior to Confirmation of that medication by product support analyst. Such practice is discouraged except when the physician, in their clinical judgment, deems that a medical need exists for a medication without regard to previous use.
--- NOTE | 2021-04-10 10:27 | CT Report ---
PROCEDURE: ANGIO ABDOMEN/PELVIS W INDICATIONS: abdominal pain, splenic infarct CONTRAST: IV CONTRAST: Optiray 320 ml: 100 PO CONTRAST: *NO PO CONTRAST TECHNIQUE: After the administration of intravenous contrast, 2 and 5 mm sections acquired from the diaphragm to the iliac crests. 3-dimensional maximum intensity projection (MIP) coronal and sagittal reformats, a nd/or 3-dimensional volume rendering reformatting was then performed. For radiation dose reduction, the following was used: automated exposure control, adjustment of mA and/or kV according to patient size. COMPARISON: CT abdomen/pelvis 04/09/2021. FINDINGS: Image quality: Excellent. Extravascular tissues: Lung bases are clear except for dependent atelectasis. Heart size is normal. Liver and spleen are normal in size and the liver is normal in enhancement. The splenic infarct id entified one day ago is again noted, without evidence of new infarction or progression of original is chemic injury. No hematoma has developed. The splenic artery is visualized show no evidence of occlus ion or stenosis. Gallbladder appears free of inflammation or calcified gallstone and there is a mild degree of contras t enhancement of the bile within the gallbladder lumen from prior CT scanning 1 day ago. Biliary sys tem is non dilated. Pancreas enhances normally. No adrenal nodules. Kidneys are normal in size and enhancement, without hydronephrosis. Non-opacified bowel loops demonstrate normal wall thickness an d caliber. No free fluid or air. No retroperitoneal or mesenteric adenopathy. No ventral hernias. No suspicious bony abnormalities. No vertebral body compression fractures. Abdominal aorta: Normal in caliber without evidence of dissection or aneurysm. Mesenteric arteries: Widely patent, no embolic disease is found. Renal arteries: Widely patent, no embolic disease is found. IMPRESSION: Isolated finding of splenic infarction which has not increased from the initial diagnost ic finding on contrast enhanced abdominal/pelvic CT scanning 1 day ago. Echocardiography likely is wa rranted to assess for potential central etiology of potential embolic event. Reviewed by: Joel Palm MD on 04/10/2021 9:25 AM [place] Approved by: Joel Palm MD on 04/10/2021 9:25 AM [facility] Station ID: [id number]
[2021-04-10] MEDS ORDERED: MAGNESIUM OXIDE 400 MG TABLET PO ONE (14:00)
[2021-04-10] MEDS: LORazepam 2 MG/ML VIAL IVP PRN (14:16)
[2021-04-10] MEDS: HEPARIN 25000UNITS/500ML (D5W) 25,000 UNIT/500 ML BAG IV SCH (19:24)
[2021-04-10] MEDS ORDERED: WARFARIN 5 MG TABLET PO STA (19:37)
[2021-04-10] MEDS: HYDROmorphone 0.5 MG/0.5 ML SYRINGE IVP PRN (20:24)
[2021-04-11] MEDS: DEXTROSE 5%-0.9% NACL 1,000 ML IV SCH ×3 (00:38→19:55)
[2021-04-11] MEDS: SODIUM CHLORIDE FLUSH 0.9% 10 ML SYRINGE IVP SCH ×3 (00:47→17:14)
[2021-04-11] MEDS: HYDROmorphone 0.5 MG/0.5 ML SYRINGE IVP PRN ×2 (00:49→08:02)
[2021-04-11 06:35] LABS: BASOPHILS % (AUTO) 0.5 %; EOSINOPHILS # (AUTO) 0.2 10^3/uL (0.0-0.7); EOSINOPHILS % (AUTO) 2.6 %; HCT - HEMATOCRIT 40.8 % (37.0-47.0); HGB - HEMOGLOBIN 13.5 g/dL (12.0-16.0); LYMPHOCYTES # (AUTO) 1.6 10^3/uL (1.5-3.5); LYMPHOCYTES % (AUTO) 20.6 %; MEAN CORPUSCULAR HEMOGLOBIN 32.1 pg (27.0-31.0); MEAN CORPUSCULAR HGB CONC 33.1 g/dL (32.0-36.0); MEAN CORPUSCULAR VOLUME 97.1 fL (81.0-99.0); MEAN PLATELET VOLUME 11.6 fL (7.9-10.8); MONOCYTES # (AUTO) 0.9 10^3/uL (0.0-1.0); MONOCYTES % (AUTO) 11.6 %; NEUTROPHILS % (AUTO) 64.3 %; PLT - PLATELET COUNT 186 10^3/uL (130-450); RED CELL DISTRIBUTION WIDTH 14.2 % (12.0-15.0); WHITE BLOOD COUNT 7.8 x10^3/uL (4.8-10.8)
[2021-04-11 06:41] LABS: INR 1.7 (0.8-1.2); PT - PROTHROMBIN TIME 17.8 secs (9.9-12.6)
[2021-04-11 06:44] LABS: CALCIUM 8.1 mg/dL (8.5-10.3); CREATININE 0.4 mg/dL (0.4-1.0)
[2021-04-11 06:49] LABS: FACTOR XA 0.3 U/mL
[2021-04-11] MEDS: PRENATAL VITAMIN TABLET PO SCH (08:02)
[2021-04-11] MEDS: THIAMINE 100 MG TABLET PO SCH (08:02)
[2021-04-11] MEDS: chlordiazePOXIDE 25 MG CAPSULE PO SCH ×2 (08:02→21:07)
[2021-04-11] MEDS ORDERED: MAGNESIUM SULFATE 2 GRAM 2 GM/50 ML BAG IV ONE (09:15)
[2021-04-11] MEDS ORDERED: POTASSIUM CHLORIDE 20 MEQ TABLET PO STA (09:15)
[2021-04-11] MEDS ORDERED: WARFARIN 5 MG TABLET PO STA ×2 (09:16)
--- NOTE | 2021-04-11 09:20 | PROVIDER PROGRESS NOTE ---
Assessment/Plan - Problem List (1) Infarction of spleen Assessment/Plan: Patient was started on Coumadin yesterday and received 10 mg p.o. INR today is 1.7. The patient received Coumadin 5 mg p.o. today. We will recheck INR tomorrow. We will discontinue heparin drip when INR is therapeutic between 2 and 3. Continue pain management with oxycodone and oral Dilaudid. We will make an outpatient referral for follow-up with hematology. This would be for further hypercoagulable work-up. Patient's Coumadin will be managed by her primary care physician. (2) Alcohol use Assessment/Plan: Patient appeared anxious/restless today. CIWA protocol applied. Librium 25 mg p.o. twice daily Continue thiamine and multivitamin - Current Meds Current Meds: Current Medications Generic Name Dose Route Start Last Admin Trade Name Freq PRN Reason Stop Dose Admin Chlordiazepoxide HCl 25 mg 04/09/21 21:00 04/11/21 08:02 Chlordiazepoxide 25 Mg Capsule PO 25 mg BID SHAWN Administration Hydromorphone HCl 0.5 mg 04/09/21 17:50 04/11/21 08:02 Hydromorphone 0.5 Mg/0.5 Ml Syringe IVP 0.5 mg Q2H PRN Administration Pain 8 to 10 Heparin Sodium/Dextrose 25,000 unit in 500 mls @ 15.9 mls/hr 04/09/21 18:00 04/10/21 19:24 Heparin Sodium/Dextrose IV 15 unit/kg/hr .[id number] SHAWN 15.9 mls/hr Administration Protocol 15 UNIT/KG/HR Dextrose/Sodium Chloride 1,000 mls @ 100 mls/hr 04/09/21 18:28 04/11/21 00:38 D5ns IV 100 mls/hr .Q10H SHAWN Administration Lorazepam 1 mg 04/09/21 18:16 04/10/21 14:16 Lorazepam 2 Mg/Ml Vial IVP 1 mg Q30M PRN Administration CIWA >8 Protocol Oxycodone HCl 10 mg 04/09/21 17:50 04/10/21 22:27 Oxycodone 5 Mg Tablet PO 10 mg Q4HR PRN Administration Pain 8 to 10 Multivit/Folic Acid/Iron 1 tab 04/10/21 09:00 04/11/21 08:02 Vitamin Tablet PO 1 tab DAILY SHAWN Administration Sodium Chloride 10 ml 04/09/21 17:50 04/10/21 20:25 Sodium Chloride Flush 0.9% 10 Ml Syringe IVP 10 ml PRN PRN Administration NEEDED PER PROVIDER ORDERS Sodium Chloride 10 ml 04/10/21 01:00 04/11/21 00:47 Sodium Chloride Flush 0.9% 10 Ml Syringe IVP 10 ml 0100,0900,1700 SHAWN Administration Thiamine HCl 100 mg 04/10/21 09:00 04/11/21 08:02 Thiamine 100 Mg Tablet PO 100 mg DAILY SHAWN Administration - Lab Result Fish Bone Diagrams: 04/11/21 06:25 04/11/21 06:25 - Additional Planning My Orders: My Active Orders 04/10/21 09:00 Vitamin [Trinatal Rx 1] 1 tab PO DAILY Thiamine [Vitamin B-1] 100 mg PO DAILY 04/11/21 09:15 MAGNESIUM SULFATE 2 GRAMS IV X1 Magnesium Sulfate 2 Gram [Magnesium Sulfate] 2 gm in 50 ml IV ONCE Potassium Chloride [K-Dur] 40 meq PO ONCE STA 04/11/21 09:16 Warfarin [Coumadin] 5 mg PO ONCE STA 04/12/21 05:00 BMP - BASIC METABOLIC PANEL [CHEM] DAILYLAB CBC - COMP BLD CT W/AUTO DIFF [HEME] DAILYLAB 04/13/21 05:00 BMP - BASIC METABOLIC PANEL [CHEM] DAILYLAB CBC - COMP BLD CT W/AUTO DIFF [HEME] DAILYLAB 04/14/21 05:00 BMP - BASIC METABOLIC PANEL [CHEM] DAILYLAB CBC - COMP BLD CT W/AUTO DIFF [HEME] DAILYLAB Subjective - Subjective Patient Reports: Other (Continues to have moderate pain in the left upper quadrant.. This seems to worsen with ambulation. She also occasionally appears restless/anxious. The rest of her history is unremarkable.) Objective Vital Signs: Vital Signs - 24 hr 04/10/21 04/10/21 04/10/21 11:26 15:52 23:51 Temperature 36.7 C 36.6 C 36.2 C L Heart Rate 75 Heart Rate [ 76 77 Brachial] Respiratory 20 16 16 Rate Blood Pressure 123/68 107/47 L [Left Brachial artery] O2 Saturation 93 99 95 04/11/21 04/11/21 04:14 08:15 Temperature 36.8 C 36.6 C Heart Rate Heart Rate [ 83 81 Brachial] Respiratory 18 20 Rate Blood Pressure 122/52 L 123/47 L [Left Brachial artery] O2 Saturation 91 L 94 Oxygen O2 Source Room air I&O (Last 24 Hrs): Intake and Output Totals x24h 04/09/21 04/10/21 04/11/21 23:59 23:59 23:59 Intake Total 1060 2247.472 1000 Output Total 680 350 Balance 1060 1567.472 650 General: Alert, Oriented x3, Moderate distress HEENT: PERRLA, EOMI Neck: Supple, No JVD Neuro: Alert, Non Focal, Oriented Times 3 Cardiovascular: Regular rate, No murmurs Respiratory: Chest non-tender, No respiratory distress, Breath sounds nml Abdomen: Normal bowel sounds, Soft, Other (Left upper quadrant tenderness) Extremities: No clubbing, No cyanosis, No edema, No tenderness/swelling Skin: No rashes, No breakdown, No significant lesion - Results Results: Laboratory Results WBC 7.8 x10^3/uL (4.8-10.8) 04/11/21 06:25 RBC 4.20 10^6/uL (4.20-5.40) 04/11/21 06:25 Hgb 13.5 g/dL (12.0-16.0) 04/11/21 06:25 Hct 40.8 % (37.0-47.0) 04/11/21 06:25 MCV 97.1 fL (81.0-99.0) 04/11/21 06:25 MCH 32.1 pg (27.0-31.0) H 04/11/21 06:25 MCHC 33.1 g/dL (32.0-36.0) 04/11/21 06:25 RDW 14.2 % (12.0-15.0) 04/11/21 06:25 Plt Count 186 10^3/uL (130-450) 04/11/21 06:25 MPV 11.6 fL (7.9-10.8) H 04/11/21 06:25 Neut # (Auto) 5.0 10^3/uL (1.5-6.6) 04/11/21 06:25 Lymph # (Auto) 1.6 10^3/uL (1.5-3.5) 04/11/21 06:25 [place] # (Auto) 0.9 10^3/uL (0.0-1.0) 04/11/21 06:25 Eos # (Auto) 0.2 10^3/uL (0.0-0.7) 04/11/21 06:25 Baso # (Auto) 0.0 10^3/uL (0.0-0.1) 04/11/21 06:25 Absolute Nucleated RBC 0.00 x10^3/uL 04/11/21 06:25 Nucleated RBC % 0.0 /100WBC 04/11/21 06:25 PT 17.8 secs (9.9-12.6) H 04/11/21 06:25 INR 1.7 (0.8-1.2) H 04/11/21 06:25 Anti-Xa Level 0.3 U/mL (-0.7) 04/11/21 06:25 Sodium 139 mmol/L (135-145) 04/11/21 06:25 Potassium 3.0 mmol/L (3.5-5.0) L 04/11/21 06:25 Chloride 106 mmol/L (101-111) 04/11/21 06:25 Carbon Dioxide 23 mmol/L (21-32) 04/11/21 06:25 Anion Gap 10.0 (6-13) 04/11/21 06:25 BUN 5 mg/dL (6-20) L 04/11/21 06:25 Creatinine 0.4 mg/dL (0.4-1.0) 04/11/21 06:25 Estimated GFR (MDRD) 160 (>89) 04/11/21 06:25 Glucose 125 mg/dL (70-100) H 04/11/21 06:25 Lactic Acid 0.8 mmol/L (0.5-2.2) 04/09/21 15:40 Calcium 8.1 mg/dL (8.5-10.3) L 04/11/21 06:25 Magnesium 1.7 mg/dL (1.7-2.8) 04/10/21 04:58 Total Bilirubin 1.0 mg/dL (0.2-1.0) 04/09/21 15:40 AST 15 IU/L (10-42) 04/09/21 15:40 ALT 11 IU/L (10-60) 04/09/21 15:40 Alkaline Phosphatase 69 IU/L (42-121) 04/09/21 15:40 Troponin I High Sens 3.2 ng/L (2.3-14.8) 04/09/21 15:40 B-Natriuretic Peptide 138 pg/mL (5-100) H 04/09/21 15:40 Total Protein 7.3 g/dL (6.7-8.2) 04/09/21 15:40 Albumin 4.1 g/dL (3.2-5.5) 04/09/21 15:40 Globulin 3.2 g/dL (2.1-4.2) 04/09/21 15:40 Albumin/Globulin Ratio 1.3 (1.0-2.2) 04/09/21 15:40 Lipase 29 U/L (22-51) 04/09/21 15:40 Urine Color DARK YELLOW 04/09/21 17:09 Urine Clarity CLEAR (CLEAR) 04/09/21 17:09 Urine pH 6.0 PH (5.0-7.5) 04/09/21 17:09 Ur Specific [place] 1.020 (1.002-1.030) 04/09/21 17:09 Urine Protein TRACE mg/dL (NEGATIVE) 04/09/21 17:09 Urine Glucose (UA) NEGATIVE mg/dL (NEGATIVE) 04/09/21 17:09 Urine Ketones 40 mg/dL (NEGATIVE) H 04/09/21 17:09 Urine Occult Blood SMALL (NEGATIVE) H 04/09/21 17:09 Urine Nitrite NEGATIVE (NEGATIVE) 04/09/21 17:09 Urine Bilirubin NEGATIVE (NEGATIVE) 04/09/21 17:09 Urine Urobilinogen 0.2 (NORMAL) E.U./dL (NORMAL) 04/09/21 17:09 Ur Leukocyte Esterase MODERATE (NEGATIVE) H 04/09/21 17:09 Urine RBC 6-10 /HPF (0-5) H 04/09/21 17:09 Urine WBC 6-10 /HPF (0-5) H 04/09/21 17:09 Ur Squamous Epith Cells FEW Squamous (<= Few) 04/09/21 17:09 Amorphous Sediment Few /LPF 04/09/21 17:09 Urine Bacteria Few /HPF (None Seen) 04/09/21 17:09 Urine Mucus Moderate Strands 04/09/21 17:09 Ur Microscopic Review INDICATED 04/09/21 17:09 Urine Culture Comments INDICATED 04/09/21 17:09 Nasal Adenovirus (PCR) NOT DETECTED 04/09/21 18:37 Nasal B. parapertussis DNA (PCR) NOT DETECTED 04/09/21 18:37 Nasal Coronavir 229E PCR NOT DETECTED 04/09/21 18:37 Nasal Coronavir HKU1 PCR NOT DETECTED 04/09/21 18:37 Nasal Coronavir NL63 PCR NOT DETECTED 04/09/21 18:37 Nasal Coronavir OC43 PCR NOT DETECTED 04/09/21 18:37 Nasal Enterovir/Rhinovir PCR NOT DETECTED 04/09/21 18:37 Nasal Influenza B PCR NOT DETECTED 04/09/21 18:37 Nasal Influenza A PCR NOT DETECTED 04/09/21 18:37 Nasal Parainfluen 1 PCR NOT DETECTED 04/09/21 18:37 Nasal Parainfluen 2 PCR NOT DETECTED 04/09/21 18:37 Nasal Parainfluen 3 PCR NOT DETECTED 04/09/21 18:37 Nasal Parainfluen 4 PCR NOT DETECTED 04/09/21 18:37 Nasal RSV (PCR) NOT DETECTED 04/09/21 18:37 Nasal B.pertussis DNA PCR NOT DETECTED 04/09/21 18:37 Nasal C.pneumoniae (PCR) NOT DETECTED 04/09/21 18:37 [place] Human Metapneumo PCR NOT DETECTED 04/09/21 18:37 Nasal M.pneumoniae (PCR) NOT DETECTED 04/09/21 18:37 Nasal SARS-CoV-2 (PCR) NOT DETECTED 04/09/21 18:37 - Procedures Procedures: Procedures EXCISION OF ASCENDING COLON, ENDO, DIAGN (05/04/18) EXCISION OF DESCENDING COLON, ENDO, DIAGN (05/04/18) ABX Reporting Has patient been on IV antibiotics over the past 48 hours?: No
[2021-04-11] MEDS: oxyCODONE 5 MG TABLET PO PRN ×2 (10:32→22:03)
[2021-04-11] MEDS ORDERED: MAGNESIUM OXIDE 400 MG TABLET PO SCH (11:00)
[2021-04-11] MEDS: LORazepam 2 MG/ML VIAL IVP PRN (11:17)
[2021-04-11] MEDS: HEPARIN 25000UNITS/500ML (D5W) 25,000 UNIT/500 ML BAG IV SCH (19:45)
[2021-04-11] MEDS: polyethylene glycoL 3350 17 GM PACKET PO SCH (21:07)
[2021-04-11] MEDS ORDERED: HYDROmorphone 0.5 MG/0.5 ML SYRINGE IVP PRN (21:30)
[2021-04-12] MEDS: SODIUM CHLORIDE FLUSH 0.9% 10 ML SYRINGE IVP SCH ×2 (00:45→08:17)
[2021-04-12 05:44] LABS: BASOPHILS % (AUTO) 0.6 %; EOSINOPHILS # (AUTO) 0.3 10^3/uL (0.0-0.7); EOSINOPHILS % (AUTO) 3.7 %; HCT - HEMATOCRIT 37.8 % (37.0-47.0); HGB - HEMOGLOBIN 12.4 g/dL (12.0-16.0); LYMPHOCYTES # (AUTO) 2.1 10^3/uL (1.5-3.5); LYMPHOCYTES % (AUTO) 31.4 %; MEAN CORPUSCULAR HEMOGLOBIN 31.6 pg (27.0-31.0); MEAN CORPUSCULAR HGB CONC 32.8 g/dL (32.0-36.0); MEAN CORPUSCULAR VOLUME 96.4 fL (81.0-99.0); MEAN PLATELET VOLUME 11.7 fL (7.9-10.8); MONOCYTES # (AUTO) 0.5 10^3/uL (0.0-1.0); MONOCYTES % (AUTO) 7.9 %; NEUTROPHILS # (AUTO) 3.7 10^3/uL (1.5-6.6); PLT - PLATELET COUNT 190 10^3/uL (130-450); RED BLOOD COUNT 3.92 10^6/uL (4.20-5.40); RED CELL DISTRIBUTION WIDTH 14.1 % (12.0-15.0); WHITE BLOOD COUNT 6.7 x10^3/uL (4.8-10.8)
[2021-04-12 05:55] LABS: BUN - BLOOD UREA NITROGEN < 5 mg/dL (6-20); CALCIUM 8.1 mg/dL (8.5-10.3); CARBON DIOXIDE - CO2 23 mmol/L (21-32); CHLORIDE 107 mmol/L (101-111); CREATININE 0.5 mg/dL (0.4-1.0); GFR - MDRD 124 (>89); GLUCOSE 121 mg/dL (70-100); POTASSIUM 3.3 mmol/L (3.5-5.0); SODIUM 137 mmol/L (135-145)
[2021-04-12] MEDS: DEXTROSE 5%-0.9% NACL 1,000 ML IV SCH ×2 (06:00→15:34)
[2021-04-12 06:01] LABS: PT - PROTHROMBIN TIME 56.6 secs (9.9-12.6)
[2021-04-12] MEDS: oxyCODONE 5 MG TABLET PO PRN ×2 (06:10→15:45)
[2021-04-12 06:12] LABS: INR 5.7 (0.8-1.2)
[2021-04-12] MEDS: PRENATAL VITAMIN TABLET PO SCH (08:15)
[2021-04-12] MEDS: THIAMINE 100 MG TABLET PO SCH (08:15)
[2021-04-12] MEDS: polyethylene glycoL 3350 17 GM PACKET PO SCH (08:15)
[2021-04-12] MEDS ORDERED: POTASSIUM CHLORIDE 20 MEQ TABLET PO ONE (08:17)
--- NOTE | 2021-04-12 08:20 | DISCHARGE SUMMARY ---
Discharge Summary Admit Date: 04/09/21 Discharge Date: 04/12/21 Discharging Provider: Ana Wilhelm Primary Care Provider: Anatoly Barragan Code Status: Attempt Resuscitation Condition at Discharge: Stable Discharge Disposition: 01 Home, Self Care - DIAGNOSES Admission Diagnoses: Infarction of spleen Alcohol use Discharge Diagnoses with Status of Each Condition: Infarction of spleen: Acute. Etiology undetermined. Pain management. On coumadin. PCP to manage coumadin Will need to see hematology for further work up Alcohol use: Chronic - HPI History of Present Illness: Patient is a 65-year-old female who presented to the ED with complaint of sharp constant abdominal pain. It started last night in the epigastric region but then progressed to her entire abdomen. Initially it was 8 out of 10 but progressed to 10 out of 10 pain. She finally came to the ED because the pain persisted and when she called her primary care clinic she was advised to go to the emergency room. She also reported feeling bloated. She denied nausea or vomiting. She also denied chest pain, dyspnea, fever or chills. In the ED work-up included a CT of the abdomen/pelvis which showed a splenic infarct. She is being admitted for further treatment to include anticoagulation. At bedside she is resting comfortably. She denies any pain but had just been given 2 doses of pain medication. - HOSPITAL COURSE Hospital Course: Abdomen/pelvis done at time of admission showed a large area of devascularization involving the spleen likely related to splenic infarct. There was no free fluid or free air. Hepatic steatosis was noted. No dilated loops of alcohol. Colonic diverticulosis without evidence of the colitis. CTA of the abdomen/pelvis done the following day showed isolated finding of splenic infarction which has not increased from the initial diagnostic finding on contrast-enhanced abdominal/pelvic CT the previous day. Underwent a 2D echocardiogram which showed the left ventricular size was normal. The left ventricular wall thickness was normal. Overall left ventricular systolic function was normal with an ejection fraction of 65 to 70%. There was no wall motion abnormality. The right ventricle was normal size and function. The left atrial volume index is normal. The aortic valve is trileaflet. There was no evidence of aortic stenosis or aortic regurgitation. There was no mitral stenosis. There was trace mitral regurgitation. There was mild tricuspid regurgitation. Mildly abnormal right heart pressure. The RVSP at rest was 48 mmHg. The intra-atrial septum appeared normal. There was no mass or thrombus identified. There was no pleural effusion. The patient was started on heparin drip at the time of admission. She also received pain management with Dilaudid and oxycodone. Coumadin was started the following day. Initial INR check was 1.7. On day 3 INR was 5.7. Patient's pain persisted and ranged between 5 and 8. Patient did not have any bleeding during her stay. She had an episode of dark stool for which fecal occult test was done and found to be negative. Her last hemoglobin check just prior to discharge was 13.8. Patient was instructed to hold Coumadin for 04/12/21 and 04/13/21. She is to have another INR check on 04/14/21. If INR is between 2 and 3 she is to start taking Coumadin 5 mg p.o. daily. If INR is higher than 3 she is to contact her primary care physician's office. The program proposals coordinator will work with his primary care physician's office to schedule a hematology follow-up for further work-up of possible causes of splenic infarct. The most significant outcome for this patient is that of auto/ functional splenectomy from the splenic infarct in the event it is complete. In which case the patient would need vaccination because she would be very susceptible to infections with capsular bacteria. Patient was prescribed oxycodone 5 mg p.o. every 8 hours as needed for pain upon discharge. She was also prescribed Protonix 40 mg p.o. daily for acid reflux. She is to follow-up with her primary care physician's office as scheduled. - ALLERGIES Allergies/Adverse Reactions: Allergies Allergy/AdvReac Type Severity Reaction Status Date / Time No Known Drug Allergies Allergy Verified 04/09/21 14:08 - MEDICATIONS Home Medications: Ambulatory Orders Medication Instructions Recorded Confirmed Pantoprazole [Protonix] 40 mg PO DAILY 30 Days #30 tablet 04/12/21 Warfarin [Coumadin] 5 mg PO 1400 30 Days #30 tablet 04/12/21 oxyCODONE [Roxicodone] 5 mg PO Q8H PRN 5 Days #15 tablet 04/12/21 - PHYSICAL EXAM AT DISCHARGE General Appearance: positive: Alert, Moderate distress Eyes Bilateral: positive: PERRL, EOMI ENT: positive: No signs of dehydration Neck: positive: No JVD, Trachea midline Cardiovascular: positive: Regular rate & rhythm, No murmur Abdomen: positive: Nml bowel sounds, Tenderness Back: positive: Nml inspection Skin: positive: Color nml, No rash, Warm, Dry Extremities: positive: Non-tender, Full ROM, Nml appearance, No pedal edema Neurologic/Psychiatric: positive: Oriented x3, Mood/affect nml - LABS Result Diagrams: 04/12/21 13:00 04/12/21 05:37 - TIME SPENT Time Spent in Discharge (Minutes): 25
--- NOTE | 2021-04-12 08:20 | PROVIDER PROGRESS NOTE ---
Assessment/Plan - Current Meds Current Meds: Current Medications Generic Name Dose Route Start Last Admin Trade Name Ludwinq PRN Reason Stop Dose Admin Chlordiazepoxide HCl 5 mg 04/12/21 09:00 04/12/21 08:15 Chlordiazepoxide 5 Mg Capsule PO 5 mg BID SHAWN Administration Dextrose/Sodium Chloride 1,000 mls @ 100 mls/hr 04/09/21 18:28 04/12/21 06:00 D5ns IV 100 mls/hr .Q10H SHAWN Administration Lorazepam 1 mg 04/09/21 18:16 04/11/21 11:17 Lorazepam 2 Mg/Ml Vial IVP 1 mg Q30M PRN Administration CIWA >8 Protocol Oxycodone HCl 10 mg 04/11/21 21:30 04/12/21 06:10 Oxycodone 5 Mg Tablet PO 10 mg Q8HR PRN Administration Pain 8 to 10 Polyethylene Glycol 17 gm 04/11/21 21:00 04/12/21 08:15 Polyethylene Glycol 3350 17 Gm Packet PO 17 gm DAILY SHAWN Administration Multivit/Folic Acid/Iron 1 tab 04/10/21 09:00 04/12/21 08:15 Vitamin Tablet PO 1 tab DAILY SHAWN Administration Sodium Chloride 10 ml 04/09/21 17:50 04/10/21 20:25 Sodium Chloride Flush 0.9% 10 Ml Syringe IVP 10 ml PRN PRN Administration NEEDED PER PROVIDER ORDERS Sodium Chloride 10 ml 04/10/21 01:00 04/12/21 08:17 Sodium Chloride Flush 0.9% 10 Ml Syringe IVP Not Given 0100,0900,1700 SHAWN Thiamine HCl 100 mg 04/10/21 09:00 04/12/21 08:15 Thiamine 100 Mg Tablet PO 100 mg DAILY SHAWN Administration - Lab Result Fish Bone Diagrams: 04/12/21 05:37 04/12/21 05:37 - Additional Planning My Orders: My Active Orders 04/11/21 21:00 polyethylene glycoL 3350 [Miralax] 17 gm PO DAILY 04/12/21 08:17 Potassium Chloride [K-Dur] 40 meq PO ONCE ONE 04/12/21 09:00 Magnesium Oxide [Mag Ox] 400 mg PO ONCE 04/13/21 05:00 BMP - BASIC METABOLIC PANEL [CHEM] DAILYLAB CBC - COMP BLD CT W/AUTO DIFF [HEME] DAILYLAB 04/14/21 05:00 BMP - BASIC METABOLIC PANEL [CHEM] DAILYLAB CBC - COMP BLD CT W/AUTO DIFF [HEME] DAILYLAB Objective Vital Signs: Vital Signs - 24 hr 04/11/21 04/11/21 04/11/21 12:40 16:00 18:37 Temperature 36.3 C L 36.6 C Heart Rate Heart Rate [ 77 72 Brachial] Respiratory 18 18 20 Rate Blood Pressure Blood Pressure 128/59 L 121/51 L 102/70 [Left Brachial artery] O2 Saturation 94 95 102 H 04/11/21 04/11/21 04/11/21 19:28 22:03 23:44 Temperature 36.9 C 36.2 C L 36.8 C Heart Rate 84 Heart Rate [ 89 88 Brachial] Respiratory 16 18 16 Rate Blood Pressure 117/61 Blood Pressure 151/76 H 95/51 L [Left Brachial artery] O2 Saturation 95 96 96 04/11/21 04/12/21 04/12/21 23:55 00:44 05:00 Temperature 36.2 C L Heart Rate Heart Rate [ 82 Brachial] Respiratory 20 Rate Blood Pressure Blood Pressure 101/46 L 97/54 L 146/70 H [Left Brachial artery] O2 Saturation 92 04/12/21 07:50 Temperature 36.7 C Heart Rate Heart Rate [ 75 Brachial] Respiratory 16 Rate Blood Pressure Blood Pressure 102/57 L [Left Brachial artery] O2 Saturation 92 Oxygen O2 Source Room air I&O (Last 24 Hrs): Intake and Output Totals x24h 04/10/21 04/11/21 04/12/21 23:59 23:59 23:59 Intake Total 2247.472 3655.498 1195.305 Output Total 680 1150 Balance 3858.387 8876.498 1195.305 - Results Results: Laboratory Results WBC 6.7 x10^3/uL (4.8-10.8) 04/12/21 05:37 RBC 3.92 10^6/uL (4.20-5.40) L 04/12/21 05:37 Hgb 12.4 g/dL (12.0-16.0) 04/12/21 05:37 Hct 37.8 % (37.0-47.0) 04/12/21 05:37 MCV 96.4 fL (81.0-99.0) 04/12/21 05:37 MCH 31.6 pg (27.0-31.0) H 04/12/21 05:37 MCHC 32.8 g/dL (32.0-36.0) 04/12/21 05:37 RDW 14.1 % (12.0-15.0) 04/12/21 05:37 Plt Count 190 10^3/uL (130-450) 04/12/21 05:37 MPV 11.7 fL (7.9-10.8) H 04/12/21 05:37 Neut # (Auto) 3.7 10^3/uL (1.5-6.6) 04/12/21 05:37 Lymph # (Auto) 2.1 10^3/uL (1.5-3.5) 04/12/21 05:37 [place] # (Auto) 0.5 10^3/uL (0.0-1.0) 04/12/21 05:37 Eos # (Auto) 0.3 10^3/uL (0.0-0.7) 04/12/21 05:37 Baso # (Auto) 0.0 10^3/uL (0.0-0.1) 04/12/21 05:37 Absolute Nucleated RBC 0.00 x10^3/uL 04/12/21 05:37 Nucleated RBC % 0.0 /100WBC 04/12/21 05:37 PT 56.6 secs (9.9-12.6) H 04/12/21 05:37 INR 5.7 (0.8-1.2) H* 04/12/21 05:37 Anti-Xa Level 0.3 U/mL (-0.7) 04/11/21 06:25 Sodium 137 mmol/L (135-145) 04/12/21 05:37 Potassium 3.3 mmol/L (3.5-5.0) L 04/12/21 05:37 Chloride 107 mmol/L (101-111) 04/12/21 05:37 Carbon Dioxide 23 mmol/L (21-32) 04/12/21 05:37 Anion Gap 7.0 (6-13) 04/12/21 05:37 BUN < 5 mg/dL (6-20) L 04/12/21 05:37 Creatinine 0.5 mg/dL (0.4-1.0) 04/12/21 05:37 Estimated GFR (MDRD) 124 (>89) 04/12/21 05:37 Glucose 121 mg/dL (70-100) H 04/12/21 05:37 Lactic Acid 0.8 mmol/L (0.5-2.2) 04/09/21 15:40 Calcium 8.1 mg/dL (8.5-10.3) L 04/12/21 05:37 Magnesium 1.7 mg/dL (1.7-2.8) 04/10/21 04:58 Total Bilirubin 1.0 mg/dL (0.2-1.0) 04/09/21 15:40 AST 15 IU/L (10-42) 04/09/21 15:40 ALT 11 IU/L (10-60) 04/09/21 15:40 Alkaline Phosphatase 69 IU/L (42-121) 04/09/21 15:40 Troponin I High Sens 3.2 ng/L (2.3-14.8) 04/09/21 15:40 B-Natriuretic Peptide 138 pg/mL (5-100) H 04/09/21 15:40 Total Protein 7.3 g/dL (6.7-8.2) 04/09/21 15:40 Albumin 4.1 g/dL (3.2-5.5) 04/09/21 15:40 Globulin 3.2 g/dL (2.1-4.2) 04/09/21 15:40 Albumin/Globulin Ratio 1.3 (1.0-2.2) 04/09/21 15:40 Lipase 29 U/L (22-51) 04/09/21 15:40 Urine Color DARK YELLOW 04/09/21 17:09 Urine Clarity CLEAR (CLEAR) 04/09/21 17:09 Urine pH 6.0 PH (5.0-7.5) 04/09/21 17:09 Ur Specific [place] 1.020 (1.002-1.030) 04/09/21 17:09 Urine Protein TRACE mg/dL (NEGATIVE) 04/09/21 17:09 Urine Glucose (UA) NEGATIVE mg/dL (NEGATIVE) 04/09/21 17:09 Urine Ketones 40 mg/dL (NEGATIVE) H 04/09/21 17:09 Urine Occult Blood SMALL (NEGATIVE) H 04/09/21 17:09 Urine Nitrite NEGATIVE (NEGATIVE) 04/09/21 17:09 Urine Bilirubin NEGATIVE (NEGATIVE) 04/09/21 17:09 Urine Urobilinogen 0.2 (NORMAL) E.U./dL (NORMAL) 04/09/21 17:09 Ur Leukocyte Esterase MODERATE (NEGATIVE) H 04/09/21 17:09 Urine RBC 6-10 /HPF (0-5) H 04/09/21 17:09 Urine WBC 6-10 /HPF (0-5) H 04/09/21 17:09 Ur Squamous Epith Cells FEW Squamous (<= Few) 04/09/21 17:09 Amorphous Sediment Few /LPF 04/09/21 17:09 Urine Bacteria Few /HPF (None Seen) 04/09/21 17:09 Urine Mucus Moderate Strands 04/09/21 17:09 Ur Microscopic Review INDICATED 04/09/21 17:09 Urine Culture Comments INDICATED 04/09/21 17:09 Nasal Adenovirus (PCR) NOT DETECTED 04/09/21 18:37 Nasal B. parapertussis DNA (PCR) NOT DETECTED 04/09/21 18:37 Nasal Coronavir 229E PCR NOT DETECTED 04/09/21 18:37 Nasal Coronavir HKU1 PCR NOT DETECTED 04/09/21 18:37 Nasal Coronavir NL63 PCR NOT DETECTED 04/09/21 18:37 Nasal Coronavir OC43 PCR NOT DETECTED 04/09/21 18:37 Nasal Enterovir/Rhinovir PCR NOT DETECTED 04/09/21 18:37 Nasal Influenza B PCR NOT DETECTED 04/09/21 18:37 Nasal Influenza A PCR NOT DETECTED 04/09/21 18:37 Nasal Parainfluen 1 PCR NOT DETECTED 04/09/21 18:37 Nasal Parainfluen 2 PCR NOT DETECTED 04/09/21 18:37 Nasal Parainfluen 3 PCR NOT DETECTED 04/09/21 18:37 Nasal Parainfluen 4 PCR NOT DETECTED 04/09/21 18:37 Nasal RSV (PCR) NOT DETECTED 04/09/21 18:37 Nasal B.pertussis DNA PCR NOT DETECTED 04/09/21 18:37 Nasal C.pneumoniae (PCR) NOT DETECTED 04/09/21 18:37 [place]ino[place] Human Metapneumo PCR NOT DETECTED 04/09/21 18:37 Nasal M.pneumoniae (PCR) NOT DETECTED 04/09/21 18:37 Nasal SARS-CoV-2 (PCR) NOT DETECTED 04/09/21 18:37 - Procedures Procedures: Procedures EXCISION OF ASCENDING COLON, ENDO, DIAGN (05/04/18) EXCISION OF DESCENDING COLON, ENDO, DIAGN (05/04/18)
--- NOTE | 2021-04-12 08:20 | Discharge Plan ---
Discharge Plan Problem Reviewed?: Yes Disposition: Home, Self Care Condition: Stable Prescriptions: Warfarin [Coumadin] 5 mg PO 1400 30 Days #30 tablet Pantoprazole [Protonix] 40 mg PO DAILY 30 Days #30 tablet oxyCODONE [Roxicodone] 5 mg PO Q8H PRN 5 Days #15 tablet PRN Reason: Abdominal Pain Diet: Soft Activity Restrictions: Activity as Tolerated Health Concerns: You presented with abdominal pain for which work-up included a CT of the abdomen pelvis which showed that you had a splenic infarct. He was started on heparin drip and subsequently started on Coumadin. The final check of your INR was 5.7. Heparin drip was stopped and you will not be given Coumadin for 2 days which would be 04/12/21 and 04/13/21. You are to have your INR checked on 04/14/21. If it is therapeutic within an INR range of 2-3 you will resume taking 5 mg of Coumadin p.o. daily. You are to follow-up with your primary care physician Dr. Anatoly Barragan as scheduled. He is expected to continue management of Coumadin. You are to follow-up with hematology for further work-up regarding possible causes of the splenic infarct. production material coordinator will work with your primary care physician's clinic to facilitate this. A 2D echocardiogram was done and found to be unremarkable. You will be prescribed pain medication as needed for 5 days. Plan of Treatment: You presented with abdominal pain for which work-up included a CT of the abdomen pelvis which showed that you had a splenic infarct. He was started on heparin drip and subsequently started on Coumadin. The final check of your INR was 5.7. Heparin drip was stopped and you will not be given Coumadin for 2 days which would be 04/12/21 and 04/13/21. You are to have your INR checked on 04/14/21. If it is therapeutic within an INR range of 2-3 you will resume taking 5 mg of Coumadin p.o. daily. You are to follow-up with your primary care physician Dr. Anatoly Barragan as scheduled. He is expected to continue management of Coumadin. You are to follow-up with hematology for further work-up regarding possible causes of the splenic infarct. production material coordinator will work with your primary care physician's clinic to facilitate this. A 2D echocardiogram was done and found to be unremarkable. You will be prescribed pain medication as needed for 5 days. Care Goals: You presented with abdominal pain for which work-up included a CT of the abdomen pelvis which showed that you had a splenic infarct. He was started on heparin drip and subsequently started on Coumadin. The final check of your INR was 5.7. Heparin drip was stopped and you will not be given Coumadin for 2 days which would be 04/12/21 and 04/13/21. You are to have your INR checked on 04/14/21. If it is therapeutic within an INR range of 2-3 you will resume taking 5 mg of Coumadin p.o. daily. You are to follow-up with your primary care physician Dr. Anatoly Barragan as scheduled. He is expected to continue management of Coumadin. You are to follow-up with hematology for further work-up regarding possible causes of the splenic infarct. production material coordinator will work with your primary care physician's clinic to facilitate this. A 2D echocardiogram was done and found to be unremarkable. You will be prescribed pain medication as needed for 5 days. Assessment: The following was explained to you with your at bedside who expressed understanding and was agreeable with the plan. No Smoking: If you smoke, Please STOP! Call for help. Follow-up with: Anatoly Barragan MD [Primary Care Provider] -
[2021-04-12] MEDS ORDERED: chlordiazePOXIDE 5 MG CAPSULE PO SCH (09:00)
[2021-04-12] MEDS ORDERED: MAGNESIUM OXIDE 400 MG TABLET PO SCH (09:00)
[2021-04-12] MEDS ORDERED: PHYTONADIONE 10 MG/ML AMP PO ONE (12:16)
[2021-04-12] MEDS ORDERED: CHERRY SYRUP 10 ML UDC PO ONE (12:16)
--- NOTE | 2021-04-12 12:31 | PROVIDER PROGRESS NOTE ---
Subjective - Prog Note Date Prog Note Date: 04/12/21 - Subjective Pt reports feeling: Improved Subjective: feels well. no complaints had a dark stool today Objective - Vital Signs/Intake & Output Reviewed Vital Signs: Yes Vital Signs: Vital Signs x48h Temp Pulse Resp BP Pulse Ox 04/12/21 07:50 36.7 C 75 16 102/57 L 92 04/12/21 05:00 36.2 C L 82 20 146/70 H 92 Intake & Output: Intake & Output 04/09/21 04/10/21 04/11/21 04/12/21 23:59 23:59 23:59 23:59 Intake Total 1060 2247.472 3655.498 1395.305 Output Total 680 1150 350 Balance 1060 5049.313 1256.498 1045.305 - Objective General Appearance: positive: No acute distress, Alert Respiratory: positive: No respiratory distress Abdomen: positive: Non-tender, No distention - Lab Results Fish Bones: 04/12/21 05:37 04/12/21 05:37 Other Labs: Lab Results x24hrs 04/12/21 04/12/21 04/12/21 Range/Units 05:37 05:37 05:37 WBC 6.7 (4.8-10.8) x10^3/uL RBC 3.92 L (4.20-5.40) 10^6/uL Hgb 12.4 (12.0-16.0) g/dL Hct 37.8 (37.0-47.0) % MCV 96.4 (81.0-99.0) fL MCH 31.6 H (27.0-31.0) pg MCHC 32.8 (32.0-36.0) g/dL RDW 14.1 (12.0-15.0) % Plt Count 190 (130-450) 10^3/uL MPV 11.7 H (7.9-10.8) fL Neut # (Auto) 3.7 (1.5-6.6) 10^3/uL Lymph # (Auto) 2.1 (1.5-3.5) 10^3/uL [place] # (Auto) 0.5 (0.0-1.0) 10^3/uL Eos # (Auto) 0.3 (0.0-0.7) 10^3/uL Baso # (Auto) 0.0 (0.0-0.1) 10^3/uL Absolute Nucleated RBC 0.00 x10^3/uL Nucleated RBC % 0.0 /100WBC PT 56.6 H (9.9-12.6) secs INR 5.7 H* (0.8-1.2) Sodium 137 (135-145) mmol/L Potassium 3.3 L (3.5-5.0) mmol/L Chloride 107 (101-111) mmol/L Carbon Dioxide 23 (21-32) mmol/L Anion Gap 7.0 (6-13) BUN < 5 L (6-20) mg/dL Creatinine 0.5 (0.4-1.0) mg/dL Estimated GFR (MDRD) 124 (>89) Glucose 121 H (70-100) mg/dL Calcium 8.1 L (8.5-10.3) mg/dL Assessment/Plan - Problem List (1) Infarction of spleen Impression: she had a dark stool today and there is concern for upper gi bleed. she is very stable. she has no complaints. agree with care and plan
[2021-04-12] MEDS ORDERED: PANTOPRAZOLE 40 MG VIAL IV SCH (13:00)
[2021-04-12] MEDS ORDERED: CHERRY SYRUP 10 ML UDC PO SCH (13:15)
[2021-04-12] MEDS: HYDROmorphone 0.5 MG/0.5 ML SYRINGE IVP PRN ×2 (13:25→16:43)
[2021-04-12 14:14] LABS: HCT - HEMATOCRIT 40.2 % (37.0-47.0); HGB - HEMOGLOBIN 13.9 g/dL (12.0-16.0); MEAN CORPUSCULAR HGB CONC 34.6 g/dL (32.0-36.0); MEAN CORPUSCULAR VOLUME 92.6 fL (81.0-99.0); MEAN PLATELET VOLUME 11.9 fL (7.9-10.8); RED BLOOD COUNT 4.34 10^6/uL (4.20-5.40); RED CELL DISTRIBUTION WIDTH 13.7 % (12.0-15.0); WHITE BLOOD COUNT 8.3 x10^3/uL (4.8-10.8)
[2021-04-12 15:46] VITALS: BP 121/53
== END 2021-04-12 17:00 | disposition home or self-care (01) | DRG 816 ==
LOC: ED 13:58 → MS2 17:50
PROVIDERS: ADMIT Internal Medicine; ATTEND Internal Medicine
DX: D73.5 Infarction of spleen (principal); F03.90 Unspecified dementia, unspecified severity, without behavioral disturbance, psychotic disturbance, mood disturbance, and anxiety; F17.200 Nicotine dependence, unspecified, uncomplicated; F17.210 Nicotine dependence, cigarettes, uncomplicated; Z20.822 Contact with and (suspected) exposure to COVID-19; Z72.89 Other problems related to lifestyle
CPT/HCPCS: 36415; 70450; 71045; 74174; 74177; 80048; 80053; 81001; 82272; 83605; 83690; 83735; 83880; 84484; 85025; 85027; 85520; 85610; 87077; 87086; 87631; 93005; 93306; 96374; 99284; 99285; A9270; J1170; J2060; Q9967; 0202U; 81003; 82274

== ENCOUNTER 2021-04-14 12:13 | Outpatient (CLI) | payer MEDICARE, OTHER ==
[2021-04-14 12:48] LABS: INR 4.5 (0.8-1.2)
== END 2021-04-14 12:14 | disposition home or self-care (01) ==
LOC: LAB 12:13
PROVIDERS: ATTEND Internal Medicine
DX: D73.5 Infarction of spleen (principal)
CPT/HCPCS: 36415; 85610

== ENCOUNTER 2021-04-15 11:42 | Outpatient (CLI) | payer MEDICARE, OTHER ==
[2021-04-15 18:19] LABS: BASOPHILS # (AUTO) 0.1 10^3/uL (0.0-0.1); BASOPHILS % (AUTO) 0.8 %; EOSINOPHILS # (AUTO) 0.2 10^3/uL (0.0-0.7); EOSINOPHILS % (AUTO) 3.3 %; HCT - HEMATOCRIT 40.2 % (37.0-47.0); HGB - HEMOGLOBIN 13.5 g/dL (12.0-16.0); LYMPHOCYTES # (AUTO) 1.5 10^3/uL (1.5-3.5); LYMPHOCYTES % (AUTO) 20.2 %; MEAN CORPUSCULAR HEMOGLOBIN 31.9 pg (27.0-31.0); MEAN CORPUSCULAR HGB CONC 33.6 g/dL (32.0-36.0); MEAN PLATELET VOLUME 12.3 fL (7.9-10.8); MONOCYTES # (AUTO) 0.6 10^3/uL (0.0-1.0); MONOCYTES % (AUTO) 8.6 %; NEUTROPHILS # (AUTO) 4.9 10^3/uL (1.5-6.6); NEUTROPHILS % (AUTO) 66.8 %; PLT - PLATELET COUNT 282 10^3/uL (130-450); RED BLOOD COUNT 4.23 10^6/uL (4.20-5.40); RED CELL DISTRIBUTION WIDTH 13.7 % (12.0-15.0); WHITE BLOOD COUNT 7.3 x10^3/uL (4.8-10.8)
== END 2021-04-15 23:59 | disposition home or self-care (01) ==
LOC: LAB.N 11:42
PROVIDERS: ATTEND Family Medicine
DX: R19.5 Other fecal abnormalities (principal)
CPT/HCPCS: 36415; 85025

== ENCOUNTER 2021-04-16 14:15 | Outpatient (CLI) | payer MEDICARE, OTHER ==
[2021-04-16 18:01] LABS: FECAL OCCULT BLOOD (FIT) NEGATIVE (NEGATIVE)
== END 2021-04-16 23:59 | disposition home or self-care (01) ==
LOC: LAB.R 14:15
PROVIDERS: ATTEND Family Medicine
DX: R19.5 Other fecal abnormalities (principal)
CPT/HCPCS: 82274

== ENCOUNTER 2021-04-20 08:00 | Outpatient (CLI) | payer MEDICARE, OTHER | END 2021-04-20 23:59 | disposition home or self-care (01) | LOC: LAB.WCP 08:00 | PROVIDERS: ATTEND Internal Medicine | DX: Z79.01 Long term (current) use of anticoagulants (principal) ==

== ENCOUNTER 2021-04-22 08:00 | Outpatient (CLI) | payer MEDICARE, OTHER | END 2021-04-22 23:59 | disposition home or self-care (01) | LOC: LAB.WCP 08:00 | PROVIDERS: ATTEND Internal Medicine | DX: D73.5 Infarction of spleen (principal); Z79.01 Long term (current) use of anticoagulants ==

== ENCOUNTER 2021-04-27 08:00 | Outpatient (CLI) | payer MEDICARE, OTHER | END 2021-04-27 23:59 | disposition home or self-care (01) | LOC: LAB.WCP 08:00 | PROVIDERS: ATTEND Internal Medicine | DX: Z79.01 Long term (current) use of anticoagulants (principal); D73.5 Infarction of spleen ==

== ENCOUNTER 2021-05-04 08:00 | Outpatient (CLI) | payer MEDICARE, OTHER | END 2021-05-04 23:59 | disposition home or self-care (01) | LOC: LAB.WCP 08:00 | PROVIDERS: ATTEND Internal Medicine | DX: Z79.01 Long term (current) use of anticoagulants (principal); D73.5 Infarction of spleen ==

== ENCOUNTER 2021-05-18 08:00 | Outpatient (CLI) | payer MEDICARE, OTHER | END 2021-05-18 23:59 | disposition home or self-care (01) | LOC: LAB.WCP 08:00 | PROVIDERS: ATTEND Family Medicine | DX: Z79.01 Long term (current) use of anticoagulants (principal); D73.5 Infarction of spleen ==

== ENCOUNTER 2021-05-25 08:00 | Outpatient (CLI) | payer MEDICARE, OTHER | END 2021-05-25 23:59 | disposition home or self-care (01) | LOC: LAB.WCP 08:00 | PROVIDERS: ATTEND Internal Medicine | DX: D73.5 Infarction of spleen (principal); Z79.01 Long term (current) use of anticoagulants ==

== ENCOUNTER 2021-06-08 08:00 | Outpatient (CLI) | payer MEDICARE, OTHER | END 2021-06-08 23:59 | disposition home or self-care (01) | LOC: LAB.WCP 08:00 | PROVIDERS: ATTEND Internal Medicine | DX: D73.5 Infarction of spleen (principal); Z79.01 Long term (current) use of anticoagulants ==

== ENCOUNTER 2021-06-29 08:00 | Outpatient (CLI) | payer MEDICARE, OTHER | END 2021-06-29 23:59 | disposition home or self-care (01) | LOC: LAB.WCP 08:00 | PROVIDERS: ATTEND Internal Medicine | DX: D73.5 Infarction of spleen (principal); Z79.01 Long term (current) use of anticoagulants ==

== ENCOUNTER 2021-07-06 08:00 | Outpatient (CLI) | payer MEDICARE, OTHER | END 2021-07-06 23:59 | disposition home or self-care (01) | LOC: LAB.WCP 08:00 | PROVIDERS: ATTEND Internal Medicine | DX: Z79.01 Long term (current) use of anticoagulants (principal); D73.5 Infarction of spleen ==

== ENCOUNTER 2021-07-20 08:00 | Outpatient (CLI) | payer MEDICARE, OTHER | END 2021-07-20 23:59 | disposition home or self-care (01) | LOC: LAB.WCP 08:00 | PROVIDERS: ATTEND Internal Medicine | DX: Z79.01 Long term (current) use of anticoagulants (principal); D73.5 Infarction of spleen ==

== ENCOUNTER 2021-07-31 08:00 | Outpatient (CLI) | payer MEDICARE, OTHER | END 2021-07-31 23:59 | disposition home or self-care (01) | LOC: LAB.WCP 08:00 | PROVIDERS: ATTEND Internal Medicine | DX: Z79.01 Long term (current) use of anticoagulants (principal); D73.5 Infarction of spleen ==

== ENCOUNTER 2021-08-24 08:00 | Outpatient (CLI) | payer MEDICARE, OTHER | END 2021-08-24 23:59 | disposition home or self-care (01) | LOC: LAB.WCP 08:00 | PROVIDERS: ATTEND Internal Medicine | DX: Z79.01 Long term (current) use of anticoagulants (principal); D73.5 Infarction of spleen ==

== ENCOUNTER 2021-08-31 08:00 | Outpatient (CLI) | payer MEDICARE, OTHER | END 2021-08-31 23:59 | disposition home or self-care (01) | LOC: LAB.WCP 08:00 | PROVIDERS: ATTEND Internal Medicine | DX: Z79.01 Long term (current) use of anticoagulants (principal); D73.5 Infarction of spleen ==

== ENCOUNTER 2021-09-09 08:00 | Outpatient (CLI) | payer MEDICARE, OTHER | END 2021-09-09 23:59 | disposition home or self-care (01) | LOC: LAB.WCP 08:00 | PROVIDERS: ATTEND Internal Medicine | DX: D73.5 Infarction of spleen (principal); Z79.01 Long term (current) use of anticoagulants ==

== ENCOUNTER 2021-09-21 08:00 | Outpatient (CLI) | payer MEDICARE, OTHER | END 2021-09-21 23:59 | disposition home or self-care (01) | LOC: LAB.WCP 08:00 | PROVIDERS: ATTEND Nurse Practitioner Family | DX: Z79.01 Long term (current) use of anticoagulants (principal); D73.5 Infarction of spleen ==

== ENCOUNTER 2021-09-28 08:00 | Outpatient (CLI) | payer MEDICARE, OTHER | END 2021-09-28 23:59 | disposition home or self-care (01) | LOC: LAB.WCP 08:00 | PROVIDERS: ATTEND Internal Medicine | DX: D73.5 Infarction of spleen (principal); Z79.01 Long term (current) use of anticoagulants ==

== ENCOUNTER 2021-10-12 08:00 | Outpatient (CLI) | payer MEDICARE, OTHER | END 2021-10-12 23:59 | disposition home or self-care (01) | LOC: LAB.WCP 08:00 | PROVIDERS: ATTEND Internal Medicine | DX: D73.5 Infarction of spleen (principal); Z79.01 Long term (current) use of anticoagulants ==

== ENCOUNTER 2021-11-04 15:45 | Outpatient (CLI) | payer MEDICARE, OTHER | END 2021-11-04 23:59 | disposition home or self-care (01) | LOC: LAB.N 15:45 | PROVIDERS: ATTEND Internal Medicine | DX: D73.5 Infarction of spleen (principal) | CPT/HCPCS: 81599; 85300 ==

== ENCOUNTER 2021-11-23 10:36 | Outpatient (CLI) | payer MEDICARE, OTHER ==
--- NOTE | 2021-11-24 08:17 | Mammography Report ---
BILATERAL DIGITAL SCREENING MAMMOGRAM 3D/2D: 11/23/2021 CLINICAL: Routine screening. Comparison is made to exams dated: 08/01/2019 mammogram, 09/20/2014 mammogram, 05/08/2013 mammogram, an d 03/16/2012 mammogram - [facility]. The tissue of both breasts is predominantly fa tty. No significant masses, calcifications, or other findings are seen in either breast. There has been no significant interval change. IMPRESSION: NEGATIVE There is no mammographic evidence of malignancy. A 1 year screening mammogram is recommended. This exam was interpreted at Station ID: [id number]. NOTE: For mammograms, a report in lay terms will be sent to the patient. Approximately 15% of breast malignancies will not be visualized mammographically. In the management of a palpable breast mass, a negative mammogram must not discourage biopsy of a clinically suspicious lesion. Electronically Signed By: Bruno Verduzco M.D., jr/chitra:11/23/2021 11:17:29 ACR BI-RADS Category 1: Negative 3341F PARENCHYMAL PATTERN: (F) - The breast(s) demonstrate(s) diffuse fatty replacement. BI-RADS CATEGORY: (1) - 1 RECOMMENDATION: (ANNUAL) - Recommend routine annual screening mammography. [id number] 1 year screening LATERALITY: (B)
== END 2021-11-23 10:37 | disposition home or self-care (01) ==
LOC: DI.N 10:36
PROVIDERS: ATTEND Internal Medicine
DX: Z12.31 Encounter for screening mammogram for malignant neoplasm of breast (principal)

== ENCOUNTER 2022-04-20 08:00 | Outpatient (CLI) | payer MEDICARE, OTHER | END 2022-04-20 23:59 | disposition home or self-care (01) | LOC: LAB.N 08:00 | PROVIDERS: ATTEND Internal Medicine | DX: K52.9 Noninfective gastroenteritis and colitis, unspecified (principal) | CPT/HCPCS: 87045; 87046; 87329; 87427; 87493 ==

== ENCOUNTER 2022-08-02 09:45 | Outpatient (CLI) | payer MEDICARE, OTHER ==
[2022-08-06 14:08] LABS: OVA + PARASITE EXAM Final report (.)
== END 2022-08-02 09:46 | disposition home or self-care (01) ==
LOC: LAB.N 09:45
PROVIDERS: ATTEND Internal Medicine
DX: K52.9 Noninfective gastroenteritis and colitis, unspecified (principal)
CPT/HCPCS: 87045; 87046; 87177; 87328; 87329; 87427; 87493

== ENCOUNTER 2022-12-09 09:04 | Outpatient (CLI) | payer MEDICARE, OTHER ==
--- NOTE | 2022-12-10 12:23 | Mammography Report ---
BILATERAL DIGITAL SCREENING MAMMOGRAM 3D/2D: 12/09/2022 CLINICAL: Routine screening. Comparison is made to exams dated: 11/23/2021 mammogram, 08/01/2019 mammogram, 09/20/2014 mammogram, mammogram, and 03/16/2012 mammogram - [facility]. Both breasts are heterogeneously dense, which may obscure small masses (category c / 51-75% glandular tissue). No significant masses, calcifications, or other findings are seen in either breast. There has been no significant interval change. IMPRESSION: NEGATIVE There is no mammographic evidence of malignancy. A 1 year screening mammogram is recommended. Based on the Tyrer Cuzick model (a risk assessment model) the patients lifetime risk is 9.2% and her 10 year risk is 4.9%. According to the ACR, ACS, and NCCN guidelines, an annual breast MRI exam aiyana g with mammogram is recommended if the patients lifetime risk is 20% or greater. This exam was interpreted at Station ID: [id number]. NOTE: For mammograms, a report in lay terms will be sent to the patient. Approximately 15% of breast malignancies will not be visualized mammographically. In the management of a palpable breast mass, a negative mammogram must not discourage biopsy of a clinically suspicious lesion. Electronically Signed By: Bruno Verduzco M.D., jr/chitra:12/09/2022 14:13:12 ACR BI-RADS Category 1: Negative 3341F PARENCHYMAL PATTERN: (D) - The breast(s) demonstrate(s) heterogeneously dense fibroglandular azam santiago. BI-RADS CATEGORY: (1) - 1 RECOMMENDATION: (ANNUAL) - Recommend routine annual screening mammography. [id number] 1 year screening LATERALITY: (B)
== END 2022-12-09 09:05 | disposition home or self-care (01) ==
LOC: DI.N 09:04
PROVIDERS: ATTEND Internal Medicine
DX: Z12.31 Encounter for screening mammogram for malignant neoplasm of breast (principal)

== ENCOUNTER 2023-01-17 08:00 | Outpatient (CLI) | payer MEDICARE, OTHER | END 2023-01-17 23:59 | disposition home or self-care (01) | LOC: LAB.N 08:00 | PROVIDERS: ATTEND Nurse Practitioner | DX: R05.9 Cough, unspecified (principal) | CPT/HCPCS: 87070; 87205 ==

== ENCOUNTER 2023-01-28 15:53 | Outpatient (CLI) | payer MEDICARE, OTHER ==
--- NOTE | 2023-01-29 03:05 | XRAY Report ---
PROCEDURE: Chest 2 View X-Ray INDICATIONS: PRODUCTIVE COUGH TECHNIQUE: 2 views of the chest were acquired. COMPARISON: Chest x-ray 04/09/2021. FINDINGS: Surgical changes and devices: None. Lungs and pleura: No pleural effusions or pneumothorax. Lungs are clear without acute consolidation . There is hyperinflation of the lungs with flattening of the hemidiaphragms compatible with COPD. Mediastinum: Mediastinal contours are normal. Heart size is normal. Bones and chest wall: There is a mild S-shaped scoliosis of the thoracolumbar spine. No suspicious b gurjit abnormalities. Soft tissues appear unremarkable. IMPRESSION: 1. No acute cardiopulmonary disease. 2. Findings compatible with COPD. Reviewed by: Glen Baker MD on 01/29/2023 3:03 AM PDT Approved by: Glen Baker MD on 01/29/2023 3:03 AM PDT Station ID: [id number]
--- NOTE | 2023-01-29 03:11 | XRAY Report ---
PROCEDURE: Abdomen 2 View X-Ray INDICATIONS: ABDOMINAL BLOATING TECHNIQUE: 2 views of the abdomen were acquired. COMPARISON: Chest x-ray 01/28/2023 FINDINGS: Surgical changes and devices: None. Bowel: No pneumoperitoneum. The bowel gas pattern is normal. Soft tissues: No masses; visualized solid organ contours appear normal in size. Bones: A levoscoliosis of the thoracal lumbar spines redemonstrated centered at L1-L2. A few air-flu id levels are demonstrated within the right lower quadrant. No suspicious bony abnormalities. IMPRESSION: 1.Bowel gas pattern within normal limits. 2. Scattered nonspecific air-fluid levels in the ascending colon is nonspecific and the differential includes a gastroenteritis, ileus, or obstruction. Reviewed by: Glen Rowell MD on 01/29/2023 3:10 AM PDT Approved by: Glen Rowell MD on 01/29/2023 3:10 AM PDT Station ID: [id number]
== END 2023-01-28 15:54 | disposition home or self-care (01) ==
LOC: DI 15:53
PROVIDERS: ATTEND Physician Assistant
DX: R05.8 Other specified cough (principal); R14.0 Abdominal distension (gaseous)

== ENCOUNTER 2023-05-30 08:00 | Outpatient (CLI) | payer MEDICARE, OTHER | END 2023-05-30 23:59 | disposition home or self-care (01) | LOC: LAB.N 08:00 | PROVIDERS: ATTEND Internal Medicine | DX: A04.72 Enterocolitis due to Clostridium difficile, not specified as recurrent (principal) | CPT/HCPCS: 87493 ==

== ENCOUNTER 2024-03-26 14:12 | Outpatient (CLI) | payer MEDICARE, OTHER ==
--- NOTE | 2024-03-26 18:17 | MRI Report ---
PROCEDURE: Brain WO INDICATIONS: MEMORY LOSS TECHNIQUE: Noncontrast axial T1 spin echo, axial T2 fast spin echo, sagittal and axial FLAIR, coronal T2 fast sp in echo, axial gradient echo, axial diffusion and ADC through the brain. COMPARISON: MRI brain 03/13/2018 FINDINGS: Image quality: Excellent. CSF Spaces: Basal cisterns are patent. No extra-axial fluid collections. Ventricles are normal in size and shape. Brain: No intracranial masses or hemorrhage. Jones/white matter interface is normal. There is mild asymmetrical volume loss and chronic microvascular ischemic changes. Possible small chronic infarct w ithin the right periventricular frontal lobe, new compared to 2018. Brainstem appears normal. Diffus ion-weighted images demonstrate no acute ischemic insult. No chronic ischemic insults. Normal intra vascular flow voids are present. Skull and face: Calvarium has normal marrow signal. Orbits appear normal. Sinuses: Sinuses and mastoids are clear. IMPRESSION: 1.No acute intracranial bodies. Mild global volume loss and chronic microvascular ischemic changes. 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 Reviewed by: Asren Mclean MD on 03/26/2024 5:15 PM [facility]OME[place] Approved by: Arsen Mclean MD on 03/26/2024 5:15 PM TOMEKA Station ID: [id number]
== END 2024-03-26 14:13 | disposition home or self-care (01) ==
LOC: DI 14:12
PROVIDERS: ATTEND Internal Medicine
DX: F10.97 Alcohol use, unspecified with alcohol-induced persisting dementia (principal); R41.3 Other amnesia; Z86.73 Personal history of transient ischemic attack (TIA), and cerebral infarction without residual deficits

== ENCOUNTER 2024-07-20 08:19 | Outpatient (CLI) | payer MEDICARE, OTHER ==
[2024-07-20 12:26] LABS: BASOPHILS # (AUTO) 0.1 10^3/uL (0.0-0.1); BASOPHILS % (AUTO) 1.5 %; EOSINOPHILS # (AUTO) 0.4 10^3/uL (0.0-0.7); EOSINOPHILS % (AUTO) 5.9 %; HGB - HEMOGLOBIN 16.2 g/dL (12.0-16.0); LYMPHOCYTES # (AUTO) 1.8 10^3/uL (1.5-3.5); LYMPHOCYTES % (AUTO) 26.8 %; MEAN CORPUSCULAR HEMOGLOBIN 31.8 pg (27.0-31.0); MEAN CORPUSCULAR HGB CONC 32.4 g/dL (32.0-36.0); MEAN PLATELET VOLUME 12.4 fL (7.9-10.8); MONOCYTES # (AUTO) 0.6 10^3/uL (0.0-1.0); MONOCYTES % (AUTO) 9.2 %; NEUTROPHILS # (AUTO) 3.8 10^3/uL (1.5-6.6); NEUTROPHILS % (AUTO) 56.2 %; PLT - PLATELET COUNT 237 10^3/uL (130-450); RED CELL DISTRIBUTION WIDTH 14.3 % (12.0-15.0); WHITE BLOOD COUNT 6.8 x10^3/uL (4.8-10.8)
[2024-07-20 12:39] LABS: ALBUMIN 4.5 g/dL (3.2-5.5); ALBUMIN/GLOBULIN RATIO 1.8 (1.0-2.2); ALKALINE PHOSPHATASE 67 IU/L (42-121); ALT ALANINE AMINOTRANSFERASE 11 IU/L (10-60); AST ASPARTATE AMINOTRANSFERASE 15 IU/L (10-42); BILIRUBIN,TOTAL 0.4 mg/dL (0.2-1.0); BUN - BLOOD UREA NITROGEN 20 mg/dL (6-20); CALCIUM 9.8 mg/dL (8.5-10.3); CARBON DIOXIDE - CO2 28 mmol/L (21-32); CHLORIDE 104 mmol/L (101-111); CHOL/HDL RATIO 2.5 (<4.4); CHOLESTEROL 229 mg/dL; CREATININE 0.8 mg/dL (0.6-1.3); GFR - MDRD 71 (>89); GLUCOSE 88 mg/dL (74-104); HDL CHOLESTEROL 90 mg/dL; LDL CHOLESTEROL,CALCULATED 126 mg/dL; LDL/HDL RATIO 1.4 (<4.4); SODIUM 139 mmol/L (135-145); TRIGLYCERIDES 63 mg/dL; VLDL CHOLESTEROL 13 mg/dL
[2024-07-20 12:51] LABS: THYROID STIMULATING HORMONE 1.41 uIU/mL (0.34-5.60)
== END 2024-07-20 08:20 | disposition home or self-care (01) ==
LOC: LAB.N 08:19
PROVIDERS: ATTEND Internal Medicine
DX: E78.5 Hyperlipidemia, unspecified (principal); E55.9 Vitamin D deficiency, unspecified; F10.27 Alcohol dependence with alcohol-induced persisting dementia; K52.831 Collagenous colitis
CPT/HCPCS: 36415; 80053; 80061; 82306; 83721; 84443; 85025